=== PATIENT | male | born 1980 | race Caucasian/White ===

== ENCOUNTER 2019-09-08 13:14 | Emergency (ER) | payer OTHER, SELFPAY ==
[2019-09-08 13:36] VITALS: BP 135/80; PULSE 90; RESP 20; TEMP 37.3; O2SAT 96; BMI 28.5
--- NOTE | 2019-09-08 13:42 | HMH.EDUTC ---
[facility] [place] Disposition Clinical Impression: Encounter for laboratory testing for COVID-19 virus, Strep throat Disposition: Home, Self-Care Condition on Discharge: Good Instructions: Strep Throat, DI for Strep Throat, Preventing the Spread of Coronavirus Discharge Instructions Additional Instructions: *If you did not take Penicillin shot or was unable to, start taking antibiotic immediately and make sure that you take it for the FULL length of time although you should start to feel better in 24-48 hours *change toothbrush and toothpaste 24-48 hours after starting to take antibiotics so you do not reinfect yourself Monitor Temp. Tylenol and/or Ibuprofen as needed. ER if fever is no less than 101 despite alternating Tylenol and Ibuprofen * Encourage fluids, water, Gatorade, powerade, pedialyte if /toddler/or child *Cold fluids, popsicles and ice cream may feel good on his throat *Monitor Temp, Over the counter Motrin or Tylenol as directed/as needed Tylenol every 4 hours and Motrin every 6 hours (as long as your family doctor has told you that you can take it) for fever or pain. and straight to ER if unable to lower temp less than 101.0 after medication given *Warm salt water gargles may help to soothe the throat *Throat Lozenges *Warm fluids like tea with honey may help to soothe the throat *Sleep elevated *Humidifier/Vaporizer Follow up IMMEDIATELY for new or worsening symptoms or no Noticeable improvement over the next 48-72 hours. 911 for difficulty breathing or swallowing Go home and self Quarantine until your test results are back and is a negative test *You was given hand out with Quarantine instructions, please follow them closely to help prevent the spread of COVID19 until your test results are back and if they are positive those instructions was included No work or public outings until test is negative'\ Follow up with Family doctor if no improvement or any worsening of symptoms in the next 48-72 hours Call back to the [facility] tomorrow to see if your results are back and if they not back then call back on Return if needed Straight to ER if any life threatening symptoms Prescriptions: Azithromycin [Z-Chris 250mg Tab] 250 mg PO DIRECTED #6 tab Transmission Status: Received by [facility] #[id number] Referrals: Clara Mesa [Primary Care Provider] - As needed Time of Disposition: 14:03 Medical Decision Making - Walter Inquiry Pt receiving controlled substance: No Walter was queried for this patient: No Vital Signs: 09/08/19 13:36 Temperature 99.1 F Temperature Source Oral Pulse Rate [Left Brachial] 90 Respiratory Rate 20 Blood Pressure [Left Arm] 135/80 Blood Pressure Mean [Left Arm] 98 Blood Pressure Source [Left Arm] Automatic Cuff Blood Pressure Position [Left Arm] Sitting 02 Sat by Pulse Oximetry 96 Oxygen Delivery Method Room Air - Lab Data Lab results reviewed: Yes: I reviewed the patient's lab results. Orders (Tests/Meds): ORDERS Category Date Time Status SARS-CoV-2, LORENE Stat Lab 09/08/19 13:49 Ordered [facility] [place] HPI - General Stated complaint: fever Time Seen by Provider: 09/08/19 13:43 Mode of Arrival: Ambulatory Source of Information: Patient Limitations: No Limitations Description of Symptoms (Recalled from Triage Doc. by RN): PATIENT C/O FEVER, EXHAUSTION, MUSCLE FATIGUE, HEADACHE AND NAUSEA SINCE SATURDAY. 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
[2019-09-08 14:27] VITALS: BP 135/80; PULSE 90; RESP 20; TEMP 37.3; O2SAT 96
[2019-09-08 19:18] LABS: UTC Strep Screen (Rapid) Positive (Negative)
[2019-09-10 12:19] LABS: Covid-19 Nasal PCR Sendout Lex NOT DETECTED
== END 2019-09-08 14:33 | disposition home or self-care (01) ==
PROVIDERS: Emergency Provider Nurse Practitioner; PCP Nurse Practitioner Family
DX: J02.0 Streptococcal pharyngitis (principal); Z03.818 Encounter for observation for suspected exposure to other biological agents ruled out
CPT/HCPCS: 87880; 99202; U0004

== ENCOUNTER 2020-01-16 11:51 | Emergency (ER) | payer OTHER, SELFPAY ==
[2020-01-16 12:19] VITALS: BP 137/80; PULSE 68; RESP 18; TEMP 36.8; O2SAT 99; BMI 28.5
--- NOTE | 2020-01-16 12:28 | HMH.EDUTC ---
[facility] [place] Disposition Clinical Impression: Exposure to COVID-19 virus Impacted ear wax Qualifiers: Laterality: left Qualified Code(s): H61.22 - Impacted cerumen, left ear Disposition: Home, Self-Care Condition on Discharge: Good Instructions: DI for Cerumen Impaction, Preventing the Spread of Coronavirus Discharge Instructions Additional Instructions: *Monitor Temp, Over the counter Motrin or Tylenol as directed/as needed Tylenol every 4 hours and Motrin every 6 hours (as long as your family doctor has told you that you can take it) for fever or pain. and straight to ER if unable to lower temp less than 101.0 after medication given *Warm salt water gargles may help to soothe the throat *Throat Lozenges *Warm fluids like tea with honey may help to soothe the throat *Sleep elevated *Humidifier/Vaporizer Follow up IMMEDIATELY for new or worsening symptoms or no Noticeable improvement over the next 48-72 hours. 911 for difficulty breathing or swallowing You was tested for today for COVID19 your test result should be back in the next 24-48 hours, you may call to the [facility] tomorrow to see if your test results are back and the result [phone] You was given a handout with instructions for Self Quarantine and Self isolation for while you wait on test results and what to do if they are positive If you are positive the Health Dept will be contacting you also Referrals: Clara Mesa [Primary Care Provider] - As needed Forms: Work/School Release Time of Disposition: 12:31 Medical Decision Making - Walter Inquiry Pt receiving controlled substance: No Walter was queried for this patient: No Vital Signs: 01/16/20 12:19 Temperature 98.2 F Temperature Source Oral Pulse Rate [Radial] 68 Respiratory Rate 18 Blood Pressure [Right Arm] 137/80 Blood Pressure Mean [Right Arm] 99 Blood Pressure Source [Right Arm] Automatic Cuff Blood Pressure Position [Right Arm] Sitting 02 Sat by Pulse Oximetry 99 Oxygen Delivery Method Room Air Orders (Tests/Meds): ORDERS Category Date Time Status Covid-19 Nasal PCR ([facility]) Routine Lab 01/16/20 11:57 Ordered [facility] [place] HPI - General Stated complaint: covid test Time Seen by Provider: 01/16/20 12:28 Mode of Arrival: Ambulatory Source of Information: Patient Limitations: No Limitations Description of Symptoms (Recalled from Triage Doc. 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 and he works for air handling for hospitals and it is his work policy that if he gets exposed he cannot return to work until he has been tested so he come in to get tested and wants to have his left ear irrigated because he feels like it is stopped up with wax - Related Data Home Medications Medication Instructions Recorded Confirmed Venlafaxine HCl [Effexor 37.5mg 1 tab PO BID 05/06/19 09/08/19 tablet] Previous Rx's Medication Instructions Recorded Azithromycin [Z-Chris 250mg Tab] 250 mg PO DIRECTED #6 tab 09/08/19 Allergies Allergy/AdvReac Type Severity Reaction Status Date / Time cephalexin [From Keflex] Allergy Verified 09/08/19 13:40 Cephalosporins Allergy Verified 09/08/19 13:41 - Worker's Comp Is this a Worker's Comp case?: No [facility] History - Hepatitis A Screen Drug use history?: No High risk sexual behaviors?: No History of sexually transmitted infection?: No Currently employed?: No Childcare worker?: No Do you have indoor plumbing?: Yes Do you have electricity?: Yes Attestation statement:: This patient has been screened for Hepatitis A risk factors. I have reviewed the patient's past medical history: Yes - Social History Alcoho
[2020-01-16 13:12] VITALS: BP 137/80; PULSE 68; RESP 18; TEMP 36.8; O2SAT 99
== END 2020-01-16 13:14 | disposition home or self-care (01) ==
PROVIDERS: Emergency Provider Nurse Practitioner; PCP Nurse Practitioner Family
DX: Z20.828 Contact with and (suspected) exposure to other viral communicable diseases (principal); H61.22 Impacted cerumen, left ear
CPT/HCPCS: 99201; U0003

== ENCOUNTER 2021-05-01 10:11 | Emergency (ER) | payer OTHER, SELFPAY ==
[2021-05-01 10:25] VITALS: BP 114/69; PULSE 68; RESP 17; TEMP 37.1; O2SAT 98; BMI 33.0
--- NOTE | 2021-05-01 10:46 | HMH.EDUTC ---
[facility] [place] Disposition Clinical Impression: Nausea vomiting and diarrhea Disposition: Home, Self-Care Condition on Discharge: Good Instructions: Diarrhea, Nausea and Vomiting-Adult Additional Instructions: Drink extra fluids with and between meals. If you have difficulty drinking, try very small amounts of water or suck on ice chips. ? Avoid fruit juices, as these do not replace minerals and can actually increase diarrhea. ? Children and adults can use sports drinks to replenish electrolytes. Younger children and infants should use products formulated for children, like oral rehydration solutions. ? Eat food in small amounts and let your stomach recover. ? Get lots of rest. You may feel tired or weak. ? No greasy or fried foods for the next 24-48 hours BRAT diet Bananas Rice Apples and [place] ? Make sure to drink plenty of liquids ? Return if needed ? Straight to ER if any life threatening symptoms ? Zofran as prescribed ? You was given an outpatient order for diarrhea panel, please collect specimen and bring back to outpatient lab then call back to the [facility] or follow up with family doctor for results ? Follow up with family doctor in the next 48-72 hours if no improvement or any worsening of symptoms Prescriptions: Ondansetron [Zofran 4mg ODT] 4 mg PO TIDP PRN #10 tab PRN Reason: Nausea Transmission Status: Received by [facility] #[id number] Referrals: Clara Mesa [Primary Care Provider] - As needed Forms: Work/School Release Time of Disposition: 11:16 Medical Decision Making - Walter Inquiry Pt receiving controlled substance: No Walter was queried for this patient: No Vital Signs: 05/01/21 10:25 05/01/21 11:40 Temperature 98.7 F 98.7 F Temperature Source Oral Oral Pulse Rate 68 Pulse Rate [Right Radial] 68 Respiratory Rate 17 17 Blood Pressure 114/69 Blood Pressure [Right Arm] 114/69 Blood Pressure Mean [Right Arm] 84 Blood Pressure Source Automatic Cuff Blood Pressure Source [Right Arm] Automatic Cuff Blood Pressure Position Sitting Blood Pressure Position [Right Arm] Sitting 02 Sat by Pulse Oximetry 98 Oxygen Delivery Method Room Air Room Air - Lab Data Lab Results 05/01/21 11:40: Stl Aeromonas (PCR) Not detected, Stl C. cayetanensis PCR Not detected, Stool Rotavirus (PCR) Detected A, Stl Adenov F 40/41 PCR Not detected, Stool Astrovirus (PCR) Not detected, Stool Campylobacter PCR Not detected, Stl C.difficile Tox PCR Not detected, Stool Cryptosporidium PCR Not detected, Stl E.coli Shiga Tox PCR Not detected, Stool E coli O157 PCR Not detected, Stl Enterotoxigenic E PCR Not detected, Stool EPEC (PCR) Not detected, Stool EAEC (PCR) Not detected, Stl E. histolytica PCR Not detected, Stool Giardia Lamblia PCR Not detected, Stool Salmonella PCR Not detected, Stool Sapovirus (PCR) Not detected, Stl P. shigelloides PCR Not detected, Stl Shigella/EIEC PCR Not detected, St Y.enterocolitica PCR Not detected, Stool Vibrio (PCR) Not detected, Stl Vibrio cholerae PCR Not detected, Stl Norovirus GI/GII PCR Not detected Orders (Tests/Meds): ED MEDICATIONS Discontinued Medications Generic Name Dose Route Start Last Admin Trade Name Freq PRN Reason Stop Dose Admin Ondansetron HCl 4 mg 05/01/21 10:53 05/01/21 10:54 Ondansetron 4mg Odt SL 05/01/21 10:54 4 mg ONCE ONE Administration Medical Decision Narrative: Patient states that he has taken zofran in the past without complications or reactions Patient no vomiting after medication patient was given jeny mist and will monitor to see if he can keep it down [facility] [place] HPI - General Stated complaint: vomiting, diarrhea Time Seen by Provider: 05/01/21 10:46 Mode of Arrival: Ambulatory Source of Information: Patient Limitations: No Limitations Description of Symptoms (Recalled from Triage Doc. by RN): Pt stated that he has vomiting, diarrhea, and nausea since saturday morning. HEENT Symptoms (Recalled from RN notes): No Resp Symptoms (R
[2021-05-01 11:40] VITALS: BP 114/69; PULSE 68; RESP 17; TEMP 37.1; O2SAT 98
[2021-05-01 11:59] LABS: Adenovirus F 40/41, stool Not Detected (NotDetected); Astrovirus Not Detected (NotDetected); Campylobacter Not Detected (NotDetected); Clostridium Difficile A/B, PCR Not Detected (NotDetected); Cryptosporidium Not Detected (NotDetected); Cyclospora Cayetanesis Not Detected (NotDetected); Entamoeba histolytica Not Detected (NotDetected); Enteroaggregative E coli Not Detected (NotDetected); Enteropathogenic E coli Not Detected (NotDetected); Enterotoxigenic E coli Not Detected (NotDetected); Giardia lamblia Not Detected (NotDetected); Norovirus Not Detected (NotDetected); Plesimonas Shigalloides, PCR Not Detected (NotDetected); Salmonella, PCR Not Detected (NotDetected); Sapovirus Not Detected (NotDetected); Shiga-like toxin E coli Not Detected (NotDetected); Shigella Enterovasive E coli Not Detected (NotDetected); Vibrio Cholerae Not Detected (NotDetected); Vibrio, PCR Not Detected (NotDetected); Yersinia Entercolitica, PCR Not Detected (NotDetected)
[2021-05-01 14:31] LABS: Rotavirus A Detected (NotDetected)
== END 2021-05-01 11:40 | disposition home or self-care (01) ==
PROVIDERS: Emergency Provider Nurse Practitioner; PCP Nurse Practitioner Family
DX: B97.89 Other viral agents as the cause of diseases classified elsewhere (principal); R11.2 Nausea with vomiting, unspecified; R19.7 Diarrhea, unspecified
CPT/HCPCS: 87507; 99212; G0463

== ENCOUNTER 2021-05-28 10:37 | Observation (INO) | payer OTHER, SELFPAY ==
[2021-05-28 10:38] VITALS: BP 131/73; PULSE 80; RESP 15; TEMP 36.8; O2SAT 100; BMI 29.8
--- NOTE | 2021-05-28 11:04 | CT_ITS ---
PROCEDURE INFORMATION: Exam: CT Head Without Contrast Exam date and time: 05/28/2021 12:02 PM Age: 40 years old Clinical indication: Pain; Headache; Migraine; Aura effect not specified; Does not respond to medication; With migrainosus (>72 hrs & severe); Additional info: Migraine x 1.5 months TECHNIQUE: Imaging protocol: Computed tomography of the head without contrast. Radiation optimization: All CT scans at this facility use at least one of these dose optimization techniques: automated exposure control; mA and/or kV adjustment per patient size (includes targeted exams where dose is matched to clinical indication); or iterative reconstruction. COMPARISON: No relevant prior studies available. FINDINGS: Brain: Poorly defined region of diminished density superimposed upon the lavonne. The findings may be artifactual however a region of chronic ischemic change could not be excluded. Cerebral ventricles: No ventriculomegaly. Paranasal sinuses: Minimal left maxillary sinus inflammatory changes. Mastoid air cells: Visualized mastoid air cells are well aerated. Bones/joints: Unremarkable. No acute fracture. Soft tissues: Unremarkable. IMPRESSION: 1. Poorly defined region of diminished density superimposed upon the lavonne. The findings may be artifactual however a region of chronic ischemic change could not be excluded. 2. Recommend follow-up with magnetic resonance imaging of the brain.
--- NOTE | 2021-05-28 11:16 | HMH.EDGENADL ---
ED Disposition Clinical Impression: Macrocytic anemia, Weight loss, Vertigo Intractable headache Qualifiers: Headache type: unspecified Headache chronicity pattern: chronic headache Qualified Code(s): R51.9 - Headache, unspecified Vomiting Qualifiers: Vomiting type: unspecified Nausea presence: with nausea Qualified Code(s): R11.2 - Nausea with vomiting, unspecified Disposition: Home, Self-Care Condition on Discharge: Fair Referrals: Clara Mesa [Primary Care Provider] - - Critical Care Critical Care Time: No Attestation: On 05/28/21, the high probability of a clinically significant, sudden or life threatening deterioration of the following system(s) required my full and direct attention, intervention and personal management. The time I documented below is in addition to time spent performing reported procedures but includes the following listed in this critical care notation. Medical Decision Making - Walter Inquiry Pt receiving controlled substance: Yes Walter was queried for this patient: Yes Risks and benefits of using a controlled substance: were not discussed with pt by me Vital Signs: 05/28/21 10:38 Temperature 98.3 F Temperature Source Oral Pulse Rate [Right Radial] 80 Respiratory Rate 15 Blood Pressure [Right Arm] 131/73 Blood Pressure Mean [Right Arm] 92 Blood Pressure Source [Right Arm] Automatic Cuff Blood Pressure Position [Right Arm] Sitting 02 Sat by Pulse Oximetry 100 Oxygen Delivery Method Room Air - Lab Data Lab Results 05/28/21 10:56: WBC 3.4 L, RBC 1.73 L*, Hgb 7.2 L, Hct 20.1 L*, MCV 115.9 H, MCH 41.3 H*, MCHC 35.6 H, RDW 22.0 H, Plt Count 191, MPV 8.3, Neut % (Auto) 53.7, Lymph % (Auto) 38.8, Brooke % (Auto) 3.5, Eos % (Auto) 2.8, Baso % (Auto) 1.2, Neut # (Auto) 1.8, Lymph # (Auto) 1.3, Brooke # (Auto) 0.1, Eos # (Auto) 0.1, Baso # (Auto) 0.0 05/28/21 10:56: Sodium 138, Potassium 4.4, Chloride 105, Carbon Dioxide 27, Anion Gap 10.4, BUN 16, Creatinine 0.90, Estimated Creat Clear 151, Estimated GFR 93, Est GFR ( Amer) 112, Glucose 109 H, Calcium 8.8, Total Bilirubin 1.7 H, AST 88 H, ALT 60, Alkaline Phosphatase 71, Total Protein 7.4, Albumin 4.5, Globulin 2.9, Albumin/Globulin Ratio 1.6 05/28/21 10:56: ESR > 140 H 05/28/21 10:56: C-Reactive Protein 7.7 H, Procalcitonin 0.248 05/28/21 10:56: Iron 281 H, TIBC 295, Iron Saturation 95.53835 H, Ferritin 233 Result diagrams: 05/28/21 10:56 05/28/21 10:56 Orders (Tests/Meds): ED MEDICATIONS Generic Name Dose Route Start Last Admin Trade Name Freq PRN Reason Stop Dose Admin Sodium Chloride 10 ml 05/28/21 11:04 Sodium Chloride 0.9% 10ml Flush Syringe IV 06/27/21 11:03 NEEDED PRN Maintain IV Site Discontinued Medications Generic Name Dose Route Start Last Admin Trade Name Freq PRN Reason Stop Dose Admin Butorphanol Tartrate 1 mg 05/28/21 11:25 05/28/21 11:49 Butorphanol Tartrate 1 Mg/Ml Vial IV 05/28/21 11:26 1 mg ONCE ONE Administration Sodium Chloride 1,000 mls @ 999 mls/hr 05/28/21 11:04 05/28/21 11:11 Sod Chlor 0.9% 1000ml Bag IV 05/28/21 12:04 999 mls/hr .Q1H1M ONE Administration Ondansetron HCl 4 mg 05/28/21 11:04 05/28/21 11:11 Ondansetron 4mg/2ml Vial IV 05/28/21 11:05 4 mg ONCE ONE Administration Ondansetron HCl 4 mg 05/28/21 13:09 05/28/21 13:15 Ondansetron 4mg/2ml Vial IV 05/28/21 13:10 4 mg ONCE ONE Administration Prochlorperazine Edisylate 5 mg 05/28/21 11:25 05/28/21 11:49 Prochlorperazine 10mg/2ml Vial IV 05/28/21 11:26 5 mg ONCE ONE Administration Ubrogepant 100 mg 05/28/21 13:40 Ubrogepant 50mg Tablet PO 05/28/21 13:41 ONCE ONE ORDERS Category Date Time Status Folate Stat Lab 05/28/21 10:56 Received Rapid PCR Covid and Flu A/B Stat Lab 05/28/21 12:48 Ordered Thyroid Panel Stat Lab 05/28/21 10:56 Received Vitamin B12 Stat Lab 05/28/21 10:56 Received - CT Data CT Scan: Head Time Received: 1
[2021-05-28 12:33] LABS: Basophils % 1.2 % (0.1-2.0); Eosinophils # 0.1 K/mm3 (0.0-0.4); Eosinophils % 2.8 % (0.1-12.0); Hemoglobin 7.2 g/dL (14.1-18.0); Lymphocytes # 1.3 K/mm3 (0.7-4.5); Lymphocytes % 38.8 % (10-50); Mean Corpuscular HGB Conc 35.6 g/dL (31.8-35.4); Mean Corpuscular Volume 115.9 fl (80-94); Mean Platelet Volume 8.3 fl (7.4-10.4); Monocytes # 0.1 K/mm3 (0.1-1.0); Monocytes % 3.5 % (1.7-9.3); Neutrophils # 1.8 K/mm3 (1.8-7.8); Neutrophils % 53.7 % (37.0-80.0); Platelet Count 191 K/mm3 (142-424); Red Blood Count 1.73 M/mm3 (4.60-6.20); White Blood Count 3.4 K/mm3 (4.8-10.8)
[2021-05-28 12:38] LABS: Mean Corpuscular Hemoglobin 41.3 pg (27.0-31.2)
[2021-05-28 12:40] LABS: Alanine Aminotransferase 60 U/L (12-78); Albumin Level 4.5 g/dl (3.5-5.0); Albumin/Globulin Ratio 1.6 (1.1-1.8); Alkaline Phosphatase 71 U/L (38-126); Anion Gap 10.4 mEq/L (5-15); Aspartate Amino Transferase 88 U/L (17-59); Bilirubin,Total 1.7 mg/dl (0.2-1.3); Blood Urea Nitrogen 16 mg/dl (9-20); Calcium 8.8 mg/dl (8.4-10.2); Carbon Dioxide 27 mmol/L (22.0-30.0); Chloride 105 mmol/L (98-107); Creatinine Clearance Estimated 151 mL/min (50-200); Estimated Glomerular Filt Rate 93 ml/min (>60); GFR (African American) 112 ML/MIN (>60); Globulin 2.9 g/dL (1.3-3.2); Glucose 109 mg/dl (74-100); Hematocrit 20.1 % (42.0-52.0); Potassium 4.4 mmoL/L (3.5-5.1); Sodium 138 mmol/L (136-145); Total Protein,Serum 7.4 g/dl (6.3-8.2)
--- NOTE | 2021-05-28 12:40 | PC.NURSE ---
LAB CALLED WITH CRITICAL HCT 20.1
--- NOTE | 2021-05-28 12:56 | PC.NURSE ---
obtained vitals, pt was sitting upright in chair
[2021-05-28 13:01] LABS: Iron 281 ug/dL (49-181)
[2021-05-28 13:11] LABS: Total Iron Binding Capacity 295 ug/dL (261-462)
--- NOTE | 2021-05-28 13:16 | PC.NURSE ---
Paged Dr Reilly
[2021-05-28 13:23] LABS: C-Reactive Protein 7.7 mg/L (0-4)
--- NOTE | 2021-05-28 13:28 | PC.NURSE ---
Dr Reilly called back [phone]
[2021-05-28 13:33] LABS: Erythrocyte Sedimentation Rate > 140 mm/hr (0-15)
[2021-05-28 13:36] LABS: Procalcitonin 0.248 ng/mL (0.0-2.0)
--- NOTE | 2021-05-28 13:37 | PC.NURSE ---
MD went to talk to Pt about admitting
[2021-05-28 13:39] LABS: Ferritin 233 ng/ml (17.9-464)
--- NOTE | 2021-05-28 13:42 | PC.NURSE ---
HOUSE CALLED FOR BED
--- NOTE | 2021-05-28 13:49 | PC.NURSE ---
[facility] CALLED ABOUT DOSE OF UBRELVY SHE ADVISED THEY WILL GIVE THAT DOSE UPON ADMISSION,MEDS ARE UP THERE
--- NOTE | 2021-05-28 13:50 | PC.NURSE ---
patrice called back to let know about med in pharm
[2021-05-28 14:05] LABS: Coronavirus 19, PCR Not Detected (NotDetected); Influenza A, PCR Not Detected (NotDetected); Influenza B, PCR Not Detected (NotDetected)
--- NOTE | 2021-05-28 14:05 | HMH.PHAINT ---
Addendum entered and electronically signed by Olvin Qiu PharmD 05/28/21 14:34: CALLED ER TO VERIFY EFFEXOR DOSE Original Note: MEDICATION RECONCILIATION COMPLETED ON PATIENT USING EXTERNAL FILL HISTORY FROM PHARMACY AND LIST FROM [facility] VISIT LAST MONTH. -CAMACHO QIU PHARMD
[2021-05-28 14:06] LABS: T4 (Thyroxine) 7.6 ug/dl (5.53-11.0); Triiodothryronine (T3) Uptake 26 % (23.5-40.5)
[2021-05-28 14:20] LABS: Thyroid Stimulating Hormone 9.63 uIU/mL (0.465-4.68)
--- NOTE | 2021-05-28 14:31 | HMH.PHAVTE ---
[facility] Pharmacy VTE Monitoring - Patient Demographics Admission date: 05/28/21 Report Date: 05/28/21 Time: 14:31 Allergies/Adverse Reactions: Patient Allergies cephalexin [From Keflex] Allergy (Verified 05/01/21 10:30) Cephalosporins Allergy (Verified 05/01/21 10:30) Height: 1.83 m Weight: 99.79 kg Patient Problems: Current Active Problems Macrocytic anemia (Acute) Intractable headache (Acute) Vomiting (Acute) Weight loss (Acute) Vertigo (Acute) - VTE Risk Labs: VTE Related Lab Results Hgb 7.2 g/dL (14.1-18.0) L 05/28/21 10:56 Hct 20.1 % (42.0-52.0) L* 05/28/21 10:56 Plt Count 191 K/mm3 (142-424) 05/28/21 10:56 BUN 16 mg/dl (9-20) 05/28/21 10:56 Creatinine 0.90 mg/dl (0.66-1.25) 05/28/21 10:56 Estimated Creat Clear 151 mL/min (50-200) 05/28/21 10:56 - Prophylaxis VTE Prophylaxis Ordered?: Yes Types of VTE Prophylaxis: TEDS Knee High Location of Applied Device: Bilateral Lower Extremeties
[2021-05-28 14:40] VITALS: BP 137/74; PULSE 96; RESP 18; TEMP 36.9; O2SAT 100; BMI 31.5
[2021-05-28 14:41] VITALS: BP 127/76; PULSE 85; RESP 16; TEMP 36.8; O2SAT 100
[2021-05-28 14:49] LABS: Vitamin B12 < 159 pg/mL (239-931)
--- NOTE | 2021-05-28 15:59 | PC.NURSE ---
Courtesy round done Ice water given
[2021-05-28 20:00] VITALS: BP 116/48; PULSE 88; RESP 16; TEMP 37.2; O2SAT 98
[2021-05-28 20:24] LABS: Uric Acid 6.3 mg/dl (3.5-8.5)
--- NOTE | 2021-05-28 20:28 | HMH.HP ---
*Admission Date: 05/28/21 *Chief complaint: headache, nausea, vomiting *History of present illness: 40-year-old male with fairly benign past medical history. Presented to the ER because of worsening headache, vomiting, weakness. On presentation he states that he has had a headache that has been chronic and intractable along with vomiting for the past 1-1/2 months. He has seen his primary care doctor twice over this. Was noted to have lost over 30 pounds in this timeframe. His headache is diffuse but intense midline top of his head. Occasional vertigo type symptoms. Denies any fever but does complain of some occasional chills at night (without sweating). Denies numbness or weakness, photosensitivity. Vomiting happening at least once a day. Difficult time keeping food down. Increased stool output with more frequent looser stools but no blanca diarrhea. Denies any easy bruising but does complain of some bleeding gums when he brushes his teeth. Is more fatigued with exertion. States he normally takes the stairs but can barely go up 2 or 3 stairs without having to stop to catch his breath. This is progressed over the past month or more. On initial work-up in the ER, head imaging was performed along with routine labs. Labs significant for marked macrocytic anemia with an MCV of 115 and hemoglobin of 7.2. Remainder of labs relatively unremarkable with normal electrolytes and kidney function. CT of head with vague finding of possible chronic ischemia around the lavonne versus motion artifact. Given inability to tolerate oral intake, extensive weight loss, marked anemia, patient admitted to medicine for further management. Evaluated after arriving to the floor. Patient is hemodynamically stable. Has family at bedside. They give an extensive history of his symptoms as above. Also mentioned that he has family members with Westwood's and celiac disease. Multiple family members with solid tumor cancers. Patient had recent sinus balloon plasty in February for chronic sinusitis, had good benefit. He is feeling better after treatment of his headache and nausea in the ER with Stadol, Compazine, Ubrelvy. Ate his entire clear liquid diet dinner. Denies any nausea or headache at this time. [facility] History I have reviewed the patient's past medical history: Yes Medical History: Reports:: Migraine Denies:: Diabetes Mellitus Type 1, Diabetes Mellitus Type 2 *Have you ever received a pneumonia vaccine?: No *Have you received a flu vaccine this season?: Yes Other Medical History: Reports: Anemia, Arthritis - *Social History Last grade of school completed: Advanced degree Smoking Status: Never smoker Alcohol Intake: never *Occupational Status:: employed *Travel in the last 8 weeks: None Family Hx:: Cancer, Coronary Artery Disease, Diabetes, Heart Attack, Hyperlipidemia, Hypertension, Stroke Review of Systems - Review of Systems Review of systems:: pertinent systems reviewed and negative unless documented below (14 point review of systems performed, pertinent positives and negatives as per HPI) - *Neurologic Reports headache(s), Reports dizziness, Denies loss of vision, Denies numbness, Denies weakness Meds Home Medications Medication Instructions Recorded Confirmed Type Ondansetron [Zofran 4mg ODT] 4 mg PO TIDP PRN #10 tab 05/01/21 05/28/21 Rx Meclizine HCl [Meclizine 25mg Tab] 25 mg PO TIDP PRN 05/28/21 05/28/21 History Promethazine HCl [Phenergan 25mg 25 mg PO Q6HP PRN 05/28/21 05/28/21 History tab] Topiramate 25 - 50 mg PO HS 05/28/21 05/28/21 History Venlafaxine HCl 75 mg PO BID 05/28/21 05/28/21 History Allergies Allergy/AdvReac Type Severity Reaction Status Date / Time cephalexin [From Keflex] Allergy Verified 05/01/21 10:30 Cephalosporins Allergy Verified 05/01/21 10:30 Exam Vital signs and Labs for Last 24 Hours: Temp Pulse Resp BP Pulse Ox 98.3 F 85 16 127/76 100 05/28/21 14:41 05/28/21 14:
[2021-05-28 20:52] LABS: Lactate Dehydrogenase 2558 U/L (313-618)
[2021-05-29] VITALS (17 sets, daily range): BP systolic 102–138; BP diastolic 41–84; PULSE 73–89; RESP 13–18; TEMP 36.5–37.2; O2SAT 95–100; BMI 31.1; BMI 31.0
--- NOTE | 2021-05-29 05:27 | PC.NURSE ---
pt has rested well throughout shift, pt denies pain or discomfort, states i feel better than I have in a month , no nausea or vomiting throughout night,iv patent and fluids continue to infuse, pt is npo for ultrasound today, vss no distress noted
[2021-05-29 06:44] LABS: Basophils % 0.4 % (0.1-2.0); Eosinophils # 0.1 K/mm3 (0.0-0.4); Eosinophils % 2.3 % (0.1-12.0); Lymphocytes # 1.7 K/mm3 (0.7-4.5); Lymphocytes % 41.3 % (10-50); Mean Corpuscular HGB Conc 36.6 g/dL (31.8-35.4); Mean Corpuscular Volume 114.5 fl (80-94); Mean Platelet Volume 8.7 fl (7.4-10.4); Monocytes # 0.1 K/mm3 (0.1-1.0); Monocytes % 2.8 % (1.7-9.3); Neutrophils # 2.2 K/mm3 (1.8-7.8); Platelet Count 134 K/mm3 (142-424); Red Blood Count 1.49 M/mm3 (4.60-6.20); Red Cell Distribution Width 22.1 % (11.5-17.5); White Blood Count 4.1 K/mm3 (4.8-10.8)
--- NOTE | 2021-05-29 07:00 | US_ITS ---
FINAL REPORT CLINICAL HISTORY: vomiting, elev liver enzymes FINDINGS: Sonographic images of the right upper quadrant were obtained. The pancreas is partially obscured. There is fatty infiltration of the liver. The gallbladder appears normal without evidence of gallstones.There is no evidence of biliary ductal dilatation.The common duct measures 3 mm. Limited images of the right kidney are unremarkable. IMPRESSION: Fatty liver. Reviewed, Interpreted and Dictated by Phillip Brito III, MD Transcribed by Corinna Braxton Authenticated by Phillip Brito III, MD on 05/29/2021 09:09:15 AM [facility]
[2021-05-29 07:01] LABS: Alanine Aminotransferase 53 U/L (12-78); Albumin Level 3.9 g/dl (3.5-5.0); Albumin/Globulin Ratio 1.6 (1.1-1.8); Alkaline Phosphatase 53 U/L (38-126); Anion Gap 9.6 mEq/L (5-15); Aspartate Amino Transferase 88 U/L (17-59); Blood Urea Nitrogen 13 mg/dl (9-20); Calcium 8.2 mg/dl (8.4-10.2); Carbon Dioxide 26 mmol/L (22.0-30.0); Chloride 108 mmol/L (98-107); Creatinine Clearance Estimated 175 mL/min (50-200); Estimated Glomerular Filt Rate 106 ml/min (>60); GFR (African American) 128 ML/MIN (>60); Globulin 2.4 g/dL (1.3-3.2); Glucose 95 mg/dl (74-100); Magnesium 2.1 mg/dl (1.6-2.3); Potassium 4.6 mmoL/L (3.5-5.1); Sodium 139 mmol/L (136-145); Total Protein,Serum 6.3 g/dl (6.3-8.2)
[2021-05-29 07:02] LABS: Mean Corpuscular Hemoglobin 41.9 pg (27.0-31.2)
[2021-05-29 07:04] LABS: Hemoglobin 6.2 g/dL (14.1-18.0)
--- NOTE | 2021-05-29 08:12 | MR_ITS ---
FINAL REPORT CLINICAL HISTORY: HEADACHE [id number], CT ABNORMALITY. COMPARISON: CT dated May 28, 2021 FINDINGS: Multiplanar MR imaging of the brain was performed without contrast. There is no evidence of intracranial hemorrhage or mass. The ventricular size is normal. There is no evidence of shift of the midline structures. No abnormal extra-axial fluid collection is identified. The posterior fossa and brainstem have an unremarkable appearance. There is no focal abnormality seen in the lavonne. No area of abnormal restricted diffusion is identified. Normal major vessel vascular flow voids are seen. There is mild mucosal thickening in the sinuses. IMPRESSION: Unremarkable brain with no acute intracranial abnormality. No focal abnormality seen in the lavonne. Mild mucosal thickening the sinuses. Reviewed, Interpreted and Dictated by Phillip Brito III, MD Transcribed by Angelika Carney Authenticated by Phillip Brito III, MD on 05/29/2021 11:17:00 AM [facility]
--- NOTE | 2021-05-29 09:03 | HMH.ACPN2 ---
Internal Medicine - PN: Subj *Date: 05/29/21 *Time: 09:03 Interval history: Patient's headache is a little better today. He feels somewhat better, remains fatigued. Exam Vital signs and Labs for Last 24 Hours: Temp Pulse Resp BP Pulse Ox 98.4 F 84 15 102/41 L 98 05/29/21 05:26 05/29/21 05:26 05/29/21 05:26 05/29/21 05:26 05/29/21 05:26 Laboratory Results - last 24 hr 05/28/21 10:56: WBC 3.4 L, RBC 1.73 L*, Hgb 7.2 L, Hct 20.1 L*, MCV 115.9 H, MCH 41.3 H*, MCHC 35.6 H, RDW 22.0 H, Plt Count 191, MPV 8.3, Neut % (Auto) 53.7, Lymph % (Auto) 38.8, Garrard % (Auto) 3.5, Eos % (Auto) 2.8, Baso % (Auto) 1.2, Neut # (Auto) 1.8, Lymph # (Auto) 1.3, Garrard # (Auto) 0.1, Eos # (Auto) 0.1, Baso # (Auto) 0.0 05/28/21 10:56: Sodium 138, Potassium 4.4, Chloride 105, Carbon Dioxide 27, Anion Gap 10.4, BUN 16, Creatinine 0.90, Estimated Creat Clear 151, Estimated GFR 93, Est GFR ( Amer) 112, Glucose 109 H, Calcium 8.8, Total Bilirubin 1.7 H, AST 88 H, ALT 60, Alkaline Phosphatase 71, Total Protein 7.4, Albumin 4.5, Globulin 2.9, Albumin/Globulin Ratio 1.6 05/28/21 10:56: ESR > 140 H 05/28/21 10:56: C-Reactive Protein 7.7 H, Procalcitonin 0.248 05/28/21 10:56: Vitamin B12 < 159 L, Folate 13.30 05/28/21 10:56: Iron 281 H, TIBC 295, Iron Saturation 95.53736 H, Ferritin 233 05/28/21 10:56: TSH 9.63 H, Free T4 Index 2.0 L, Thyroxine (T4) 7.6, T3 Uptake 22 10:56: Uric Acid 6.3, Lactate Dehydrogenase 2558 H 05/28/21 10:56: Blood Type Confirm A Positive 05/28/21 13:56: SARS-CoV-2 (PCR) Not detected, Influenza A Untype (PCR) Not detected, Influenza Type B (PCR) Not detected 05/28/21 21:00: Blood Type A Positive, Antibody Screen Negative, Crossmatch (AHG) See Detail 05/29/21 06:25: WBC 4.1 L, RBC 1.49 L*, Hgb 6.2 L*, Hct 17.0 L*, MCV 114.5 H, MCH 41.9 H*, MCHC 36.6 H, RDW 22.1 H, Plt Count 134 L D, MPV 8.7, Neut % (Auto) 53.0, Lymph % (Auto) 41.3, Garrard % (Auto) 2.8, Eos % (Auto) 2.3, Baso % (Auto) 0.4, Neut # (Auto) 2.2, Lymph # (Auto) 1.7, Garrard # (Auto) 0.1, Eos # (Auto) 0.1, Baso # (Auto) 0.0 05/29/21 06:25: Sodium 139, Potassium 4.6, Chloride 108 H, Carbon Dioxide 26, Anion Gap 9.6, BUN 13, Creatinine 0.80, Estimated Creat Clear 175, Estimated GFR 106, Est GFR ( Amer) 128, Glucose 95, Calcium 8.2 L, Phosphorus 4.0, Magnesium 2.1, Total Bilirubin 2.0 H, AST 88 H, ALT 53, Alkaline Phosphatase 53, Total Protein 6.3, Albumin 3.9 D, Globulin 2.4, Albumin/Globulin Ratio 1.6 I & O for Last 24 hours: Intake & Output 05/26/21 05/27/21 05/28/21 05/29/21 11:59 11:59 11:59 11:59 Intake Total 240 / 240 Balance 240 / 240 Weight 220 lb 229 lb 9.6 oz Narrative: Overall patient looks pale but is alert, pleasant. Healthy-appearing. Lungs clear, heart rate regular. No rash. No unusual stigmata of pigmentation. Cranial nerves intact. Soft and nontender. Assessment and Plan (1) Intractable headache Status: Acute Qualifiers: Headache type: unspecified Headache chronicity pattern: chronic headache Qualified Code(s): R51.9 - Headache, unspecified; G89.29 - Other chronic pain Category: Medical Code(s): R51.9 - Headache, unspecified (2) Macrocytic anemia Status: Acute Category: Medical Code(s): D53.9 - Nutritional anemia, unspecified (3) Class 1 obesity Status: Chronic Category: Medical Code(s): E66.9 - Obesity, unspecified (4) Vomiting Status: Acute Qualifiers: Vomiting type: unspecified Nausea presence: with nausea Qualified Code(s): R11.2 - Nausea with vomiting, unspecified Category: Medical Code(s): R11.10 - Vomiting, unspecified (5) Weight loss Status: Acute Category: Medical Code(s): R63.4 - Abnormal weight loss - Assessment and plan all Dx Assessment and Plan for all problems:: B12 deficiency of uncertain etiology-possible pernicious anemia versus other endocrinology abnormalities. Transfusion today given hemoglobin below 7. Check MRI given CT sc
--- NOTE | 2021-05-29 15:41 | PC.NURSE ---
vitals in TAR entered at 1536 are vitals from 1420 that were entered and saved before changing the time in the TAR
--- NOTE | 2021-05-29 18:58 | PC.NURSE ---
Per Dr. Fox, once hemoglobin is obtained to let him know if its above 7. If above 7 will discharge with follow up for Dr. Reilly on saturday. appt will still have to be made
[2021-05-29 20:05] LABS: Hematocrit 22.9 % (42.0-52.0)
[2021-05-29 20:40] LABS: Occult Blood,Stool Negative (Negative)
--- NOTE | 2021-05-29 20:53 | HMH.DCSUM ---
General - General Admission date:: 05/28/21 Discharge date: 05/29/21 HPI HPI: 40-year-old male with fairly benign past medical history. Presented to the ER because of worsening headache, vomiting, weakness. On presentation he states that he has had a headache that has been chronic and intractable along with vomiting for the past 1-1/2 months. He has seen his primary care doctor twice over this. Was noted to have lost over 30 pounds in this timeframe. His headache is diffuse but intense midline top of his head. Occasional vertigo type symptoms. Denies any fever but does complain of some occasional chills at night (without sweating). Denies numbness or weakness, photosensitivity. Vomiting happening at least once a day. Difficult time keeping food down. Increased stool output with more frequent looser stools but no blanca diarrhea. Denies any easy bruising but does complain of some bleeding gums when he brushes his teeth. Is more fatigued with exertion. States he normally takes the stairs but can barely go up 2 or 3 stairs without having to stop to catch his breath. This is progressed over the past month or more. On initial work-up in the ER, head imaging was performed along with routine labs. Labs significant for marked macrocytic anemia with an MCV of 115 and hemoglobin of 7.2. Remainder of labs relatively unremarkable with normal electrolytes and kidney function. CT of head with vague finding of possible chronic ischemia around the lavonne versus motion artifact. Given inability to tolerate oral intake, extensive weight loss, marked anemia, patient admitted to medicine for further management. Evaluated after arriving to the floor. Patient is hemodynamically stable. Has family at bedside. They give an extensive history of his symptoms as above. Also mentioned that he has family members with Yuma's and celiac disease. Multiple family members with solid tumor cancers. Patient had recent sinus balloon plasty in February for chronic sinusitis, had good benefit. He is feeling better after treatment of his headache and nausea in the ER with Stadol, Compazine, Ubrelvy. Ate his entire clear liquid diet dinner. Denies any nausea or headache at this time. Hospital Course Hospital Course: Patient was admitted to hospital as noted in HPI. CT scan of head was negative the ER and MRI was repeated today because of his ongoing headaches and this was also changes or cause of headache. B12 levels were found to be low and patient was found to be mildly low thyroid. He was given IV fluids which caused his hemoglobin to drop below 7 he was transfused with 1 unit of packed cells today which bumped up his hemoglobin to 8 and resolved a lot of his fatigue symptoms. His constellation of symptoms are certainly concerning for several diseases but currently pernicious anemia seems to be our working diagnosis. We have sent off test for multiple conditions including intrinsic factor antibody levels which will be back over the next weeks. Patient is feeling better and is safe to be discharged home to follow as an outpatient. I have told him that I will get him B12 supplementation injections and thyroid supplementation sent to his pharmacy tomorrow office hours, he lives very close to the hospital and is comfortable going home as reliable transportation to get back if he needs to. We will see him in our offices this coming Saturday to go over lab results and see how he is feeling. Objective Vital signs: Temp Pulse Resp BP Pulse Ox 97.7 F 73 14 125/71 100 05/29/21 16:20 05/29/21 16:20 05/29/21 16:20 05/29/21 16:20 05/29/21 16:20 no acute distress - *Routine HEENT Exam Head: Present: normocephalic Eye: Present: EOMI, PERRL ENT: Present: mucous membranes moist - *Routine Neck Exam Present: supple - *Routine Respiratory Exam Present: CTA bilaterally - *Routine Cardiovascular Exam Present: RRR - *Routine Abdomi
--- NOTE | 2021-05-29 22:19 | PC.NURSE ---
2215 iv d/c'd to left antecubital, catheter intact, pt tolerated well, dressing and coban applied, discharge instructions reviewed with return verbal understanding, prescriptions given and instructed on, pt left via wheelchair to private care in satisfactory condition with personal belongings accompanied by srna and family.
[2021-05-30 05:14] LABS: Homocyst(e)ine 94.9 umol/L (0.0-14.5)
[2021-05-30 05:14] LABS: Haptoglobin <10 mg/dL (23-355)
--- NOTE | 2021-05-30 12:48 | CARE MANAGER ---
Addendum entered by Claire Gil RN 06/01/21 12:39: Patient states he is feeling so much better. He has follow up appointment tomorrow. He is taking the thyroid medication and the B12 as well. He denies any questions or concerns. ZAHIDA Christina Addendum entered by Claire Gil RN 05/31/21 13:00: Attempted to contact patient related to hospital discharge follow up and VM was full. ZAHIDA Christina Original Note: Attempted to contact patient related to hospital discharge follow up. Left VM message. ZAHIDA Christina
[2021-05-30 14:13] LABS: Deamidated Gliadin Abs, IgA 7 units (0-19); Deamidated Gliadin Abs, IgG 2 units (0-19); Tissue Transglutaminase IgA Ab <2 U/mL (0-3); Tissue Transglutaminase IgG Ab <2 U/mL (0-5)
[2021-05-30 20:00] LABS: Peripheral Smear Review Scanned Result
[2021-05-31 17:10] LABS: Intrinsic Factor Abs, Serum 52.9 AU/mL (0.0-1.1)
[2021-06-02 12:12] LABS: Methylmalonic Acid 3281 nmol/L (0-378)
== END 2021-05-29 22:12 | disposition home or self-care (01) ==
LOC: ER 13:41 → 2ND 05-29 00:56
PROVIDERS: Admitting Provider Internal Medicine Adolescent Medicine; Emergency Provider Emergency Medicine; PCP Nurse Practitioner Family; Visit Provider Internal Medicine Adolescent Medicine
DX: D53.9 Nutritional anemia, unspecified (principal); Z20.822 Contact with and (suspected) exposure to COVID-19; R51.9 Headache, unspecified; Z82.49 Family history of ischemic heart disease and other diseases of the circulatory system
CPT/HCPCS: 70450; 70551; 76705; 80053; 82131; 82272; 82607; 82728; 82746; 83010; 83090; 83516; 83540; 83550; 83615; 83735; 84100; 84145; 84436; 84443; 84479; 84550; 85014; 85018; 85025; 85651; 86140; 86340; 86850; 96365; 96375; 96376; 99285; C9803; G0328; G0378; J0595; J2405; P9016; U0003; U0005

== ENCOUNTER 2023-04-04 08:12 | Outpatient (CLI) | payer OTHER, SELFPAY ==
--- NOTE | 2023-04-04 08:17 | US_ITS ---
FINAL REPORT TECHNIQUE: Multiple transverse and longitudinal images CLINICAL HISTORY: ELEVATED LIVER ENZYMES COMPARISON: None FINDINGS: The gallbladder shows no wall thickening, distention or stone disease. No biliary ductal dilatation is appreciated. No fluid collections are seen. There is fatty infiltration of the liver present. Limited portions of the right kidney are unremarkable. IMPRESSION: No evidence of cholelithiasis or biliary ductal dilatation. Fatty infiltration of the liver. Reviewed, Interpreted and Dictated by Delisa Zelaya MD Transcribed by Nancy Lombardi Authenticated and [facility]
== END 2023-04-04 23:59 ==
LOC: RAD 08:12
PROVIDERS: PCP Internal Medicine Adolescent Medicine; Visit Provider Internal Medicine Adolescent Medicine
DX: R74.8 Abnormal levels of other serum enzymes (principal)
CPT/HCPCS: 76705

== ENCOUNTER 2023-06-30 15:17 | Emergency (ER) | payer OTHER, SELFPAY ==
[2023-06-30 15:45] VITALS: BP 122/84; PULSE 73; RESP 18; TEMP 36.5; O2SAT 96; BMI 32.8
[2023-06-30 15:54] LABS: Apearance,Urine Cloudy (Clear); Bilirubin,Urine Negative (Negative); Blood, Urine Trace (Negative); Color,Urine Dark Yellow (Yellow); Glucose,Urine (UA) Negative (Negative); Ketones,Urine Negative (Negative); Protein,Urine Negative (Negative); Specific Gravity, Urine 1.025 (1.005-1.030); UTC Leukocyte Esterase,Urine Negative (Negative); UTC Nitrate,Urine Negative (Negative); Urobilinogen,Urine 1 EU/dl (0.2)
--- NOTE | 2023-06-30 15:57 | ED_ITS ---
Discharge Plan Disposition Patient Disposition: Still a Patient Condition: Good Prescriptions Prescriptions: New pantoprazole [Protonix] 40 mg tablet,delayed release (DR/EC) 40 mg PO BID 14 Days Qty: 28 0RF ondansetron 4 mg tablet,disintegrating 4 mg PO Q6H PRN (Reason: nausea and vomiting) Qty: 10 0RF No Action topiramate 25 MG tablet 25 - 50 mg PO HS Patient Comments: TAKE 1 TABLET BY MOUTH EVERY NIGHT. MAY INCREASE TO 2 AT BEDTIME NEEDED meclizine 25 MG tablet,chewable 25 mg PO TIDP PRN (Reason: Dizziness) venlafaxine 75 MG tablet 75 mg PO BID levothyroxine 50 MCG tablet 50 mcg PO DAILY Qty: 30 3RF cyanocobalamin (vitamin B-12) 1,000 MCG/ML solution 1,000 mcg SQ DIRECTED Qty: 20 0RF Rx Instructions: Take injections twice weekly for 6 weeks, then as directed. (DME) syringe with needle 1 EACH syringe 1 each MC DIRECTED Qty: 60 0RF Referrals Follow up/Referrals: Pierre Fox MD [Primary Care Provider] - See instructions Activity Restrictions/Add. Instructions Additional Instructions/Restrictions: Follow-up with your PCP as scheduled on Saturday. Return to the ER for any worsening signs or symptoms including vomiting of blood bright red blood per rectum fever increasing pain etc. as needed Clinical Impressions Clinical Impression: Abdominal pain, acute, epigastric Instructions Patient Instructions: DI for Acute Abdominal Pain Discharge ED Provider: Romina Mckenna [facility] General Chief complaint: Abdominal Pain Stated complaint: Stomach pain with vomiting,skin rash Mode of Arrival: Ambulatory Source of Information: Patient Limitations: No Limitations Time Seen by Provider: 06/30/23 15:57 Description of Symptoms (Recalled from Triage Doc. by RN): Pt states that for the last week he has had bilateral epigastic pain that does not radiate. He has baseline pain, but gets worse after eating. He started to vomit yesterday. He woke up this morning with a rash all over his body. He denies any thing new or changes. HEENT Symptoms (Recalled from RN notes): No Resp Symptoms (Recalled from RN notes): No Skin Symptoms (Recalled from RN notes): No MS Symptoms (Recalled from RN notes): No Functional Status (Recalled from RN notes): n/a History of Present Illness Provider Complaint: Patient states that he started on Saturday with upper abdominal pain that has progressively got worse and yesterday he started with vomiting and continued pain in his abdomen and has had a headache States that this morning he woke up with rash all over his arms, chest and legs Denies known exposure to anything States that pain in abdomen has continued to get worse today and rates pain a 7 on pain scale Related Data Home Medications Medication Instructions Recorded Confirmed meclizine 25 mg chewable tablet 25 mg PO TIDP PRN Dizziness 05/28/21 05/28/21 topiramate 25 mg tablet 25 - 50 mg PO HS MIGRAINE 05/28/21 06/30/23 venlafaxine 75 mg tablet 75 mg PO BID MIGRAINES 05/28/21 06/30/23 Previous Rx's Medication Instructions Recorded cyanocobalamin (vitamin B-12) 1,000 mcg SQ DIRECTED #20 mL 05/29/21 1,000 mcg/mL injection solution levothyroxine 50 mcg tablet 50 mcg PO DAILY #30 tabs 05/29/21 syringe with needle 1 mL 25 gauge #60 ea 05/29/21 x 5/8 ondansetron 4 mg disintegrating 4 mg PO Q6H PRN nausea and 06/30/23 tablet vomiting #10 tabs pantoprazole 40 mg tablet,delayed 40 mg PO BID 14 days #28 tabs 06/30/23 release (Protonix) Allergies Allergy/AdvReac Type Severity Reaction Status Date / Time cephalexin [From Keflex] Allergy Verified 06/30/23 15:54 Cephalosporins Allergy Verified 06/30/23 15:54 Worker's Comp Is this a Worker's Comp case?: No [facility]SH [facility] Disclaimer: The information contained in this section may have been updated after the patient was seen, as this information can be updated by other users. Social History Smoking Status: Never smoker alcohol intake: never current occupational status: employed Travel in the last 8 weeks: None ROS Obtained: Yes All systems reviewed & no additional complaints except as documented and Yes Systems reviewed as appropriate & no additional complaints except as documented Constitutional Constitutional: Reports system reviewed and no additional complaints, except as documented, Reports as per HPI and Reports headache(s) ENT Ears, Nose, Mouth, and Throat: Reports system reviewed and no additional complaints, except as documented, Reports as per HPI and Reports headache(s) Cardiovascular Cardiovascular: Reports system reviewed and no additional complaints, except as documented and Reports as per HPI Respiratory Respiratory: Reports system reviewed and no additional complaints, except as documented and Reports as per HPI Gastrointestinal Gastrointestingal: Reports system reviewed and no additional complaints, except as documented, as per HPI, abdominal pain, nausea, vomiting and other (reports pain worse in abdomen after eating) Integumentary/Breasts Skin/Breast: Reports system reviewed and no additional complaints, except as documented, Reports as per HPI and Reports rash Neurologic Neurologic: Reports headache(s) Physical Exam General General appearance: alert and in no apparent distress Respiratory Respiratory exam: Present normal lung sounds bilaterally; Absent respiratory distress or wheezes Cardiovascular Cardiovascular exam: Present regular rate, normal rhythm and normal heart sounds Abdominal Exam Abdominal exam: Present soft and tenderness (reports tenderness with palpation in upper abdomen); Absent distention Neurological Exam Neurological exam: Present alert, oriented X3 and normal gait Skin Skin exam: Present rash (rash on right wrist, back and legs red, raised hive like that blanches) Medical Decision Making Walter Inquiry Pt receiving controlled substance: No Walter was queried for this patient: No Vital Signs: 06/30/23 15:45 Temperature 97.7 F Temperature Source Oral Pulse Rate [Right Radial] 73 Respiratory Rate 18 Blood Pressure [Right Arm] 122/84 Blood Pressure Mean [Right Arm] 96 Blood Pressure Source [Right Arm] Automatic Cuff Blood Pressure Position [Right Arm] Sitting 02 Sat by Pulse Oximetry 96 Oxygen Delivery Method Room Air Lab Data Lab results reviewed: Yes I reviewed the patient's lab results. Lab Results 06/30/23 15:35: Urine Color Dark yellow, Urine Appearance Cloudy, Urine pH 7.0, Ur Specific [place] 1.025, Urine Protein Negative, Urine Glucose (UA) Negative, Urine Ketones Negative, Urine Blood Trace, Urine Nitrate Negative, Urine Bilirubin Negative, Urine Urobilinogen 1, Ur Leukocyte Esterase Negative 06/30/23 16:15 06/30/23 16:15 Orders (Tests/Meds): ORDERS Category Date Time Status Urine Culture Stat Micro 06/30/23 15:33 Received Medical Decision Narrative: Discussed with patient and due to having worsening of abdominal pain, headache and rash that started today recommended transfer to the ED for further work up and evaluation and he agreed Called ED spoke with staff and patient was moved to the ED for futher work up and evaluation
[2023-06-30 16:08] VITALS: BP 142/101; PULSE 74; RESP 16; TEMP 36.6; O2SAT 97; BMI 32.6
--- NOTE | 2023-06-30 16:08 | PC.NURSE ---
PT ARRIVED TO ED FROM [facility]
--- NOTE | 2023-06-30 16:31 | HMH.EDGENADL ---
Discharge Plan Disposition Patient Disposition: Still a Patient Condition: Good Prescriptions Prescriptions: New pantoprazole [Protonix] 40 mg tablet,delayed release (DR/EC) 40 mg PO BID 14 Days Qty: 28 0RF ondansetron 4 mg tablet,disintegrating 4 mg PO Q6H PRN (Reason: nausea and vomiting) Qty: 10 0RF No Action topiramate 25 MG tablet 25 - 50 mg PO HS Patient Comments: TAKE 1 TABLET BY MOUTH EVERY NIGHT. MAY INCREASE TO 2 AT BEDTIME NEEDED meclizine 25 MG tablet,chewable 25 mg PO TIDP PRN (Reason: Dizziness) venlafaxine 75 MG tablet 75 mg PO BID levothyroxine 50 MCG tablet 50 mcg PO DAILY Qty: 30 3RF cyanocobalamin (vitamin B-12) 1,000 MCG/ML solution 1,000 mcg SQ DIRECTED Qty: 20 0RF Rx Instructions: Take injections twice weekly for 6 weeks, then as directed. (DME) syringe with needle 1 EACH syringe 1 each MC DIRECTED Qty: 60 0RF Referrals Follow up/Referrals: Pierre Fox MD [Primary Care Provider] - See instructions Activity Restrictions/Add. Instructions Additional Instructions/Restrictions: Follow-up with your PCP as scheduled on Saturday. Return to the ER for any worsening signs or symptoms including vomiting of blood bright red blood per rectum fever increasing pain etc. as needed Clinical Impressions Clinical Impression: Abdominal pain, acute, epigastric Instructions Patient Instructions: DI for Acute Abdominal Pain Discharge ED Provider: Romina Mckenna General Adult HPI <CALLUM Goodwin - Last Filed: 06/30/23 18:43> General Chief complaint: Abdominal Pain Stated complaint: Stomach pain with vomiting,skin rash Time Seen by Provider: 06/30/23 15:57 Mode of Arrival: Ambulatory Source of Information: Patient Limitations: No Limitations Description of Symptoms (Recalled from ER Triage Doc. by RN): Pt states that for the last week he has had bilateral epigastic pain that does not radiate. He has baseline pain, but gets worse after eating. He started to vomit yesterday. He woke up this morning with a rash all over his body. He denies any thing new or changes. History of Present Illness HPI narrative: Patient presents for evaluation of abdominal pain. Patient reports a 5-day history of epigastric abdominal pain worse after eating. It does dario but not go away completely. Patient's pain is currently 2 out of 10 and is located in the epigastrium. It does not radiate. Last night however patient patient began vomiting and was unable to tolerate oral intake. This morning he awoke with a widespread pruritic rash. Patient has a history of pernicious anemia as well as a family history of celiac disease. Patient currently denies chest pain shortness of breath fever chills hemoptysis hematochezia melena diarrhea. Patient also reports that he is still passing flatus and stool however stool was turned to light-colored. Related Data Home Medications Medication Instructions Recorded Confirmed meclizine 25 mg chewable tablet 25 mg PO TIDP PRN Dizziness 05/28/21 05/28/21 topiramate 25 mg tablet 25 - 50 mg PO HS MIGRAINE 05/28/21 06/30/23 venlafaxine 75 mg tablet 75 mg PO BID MIGRAINES 05/28/21 06/30/23 Previous Rx's Medication Instructions Recorded cyanocobalamin (vitamin B-12) 1,000 mcg SQ DIRECTED #20 mL 05/29/21 1,000 mcg/mL injection solution levothyroxine 50 mcg tablet 50 mcg PO DAILY #30 tabs 05/29/21 syringe with needle 1 mL 25 gauge #60 ea 05/29/21 x 5/8 ondansetron 4 mg disintegrating 4 mg PO Q6H PRN nausea and 06/30/23 tablet vomiting #10 tabs pantoprazole 40 mg tablet,delayed 40 mg PO BID 14 days #28 tabs 06/30/23 release (Protonix) Allergies Allergy/AdvReac Type Severity Reaction Status Date / Time cephalexin [From Keflex] Allergy Verified 06/30/23 15:54 Cephalosporins Allergy Verified 06/30/23 15:54 [facility] <CALLUM Goodwin - Last Filed: 06/30/23 18:43> [facility] Disclaimer: The information contained in this section may have been updated after the patient was seen, as this information can be updated by other users. Social History Smoking Status: Never smoker alcohol intake: never current occupational status: employed Travel in the last 8 weeks: None <CALLUM Goodwin - Last Filed: 06/30/23 18:43> ROS Obtained: Yes Systems reviewed as appropriate & no additional complaints except as documented Physical Exam <CALLUM Goodwin - Last Filed: 06/30/23 18:43> General General appearance: alert and in no apparent distress Head Head exam: atraumatic and normal inspection Eye Eye exam: Present normal appearance, PERRL and EOMI ENT ENT exam: Present normal exam, normal oropharynx and mucous membranes moist Neck Neck exam: Present normal inspection and full ROM; Absent lymphadenopathy Chest Chest inspection: Present normal inspection and symmetric chest wall rise; Absent tenderness Respiratory Respiratory exam: Present normal lung sounds bilaterally; Absent respiratory distress, wheezes or accessory muscle use Cardiovascular Cardiovascular exam: Present regular rate, normal rhythm, normal heart sounds, +S1 and +S2 Abdominal Exam Abdominal exam: Present soft, tenderness (Patient is moderately tender to palpation in the epigastrium) and normal bowel sounds; Absent guarding or rebound Extremities Exam Extremities exam: Present normal inspection and full ROM Back Exam Back exam: Present normal inspection and full ROM; Absent tenderness Neurological Exam Neurological exam: Present alert, oriented X3 and CN II-XII intact Psychiatric Psychiatric exam: Present normal affect and normal mood Skin Skin exam: Present warm, dry, normal color and rash (Patient has a diffuse irregularly bordered blanching scattered raised pruritic rash over the entire trunk and extremities.) Medical Decision Making <CALLUM Goodwin - Last Filed: 06/30/23 18:43> Medical Records Medical records reviewed: Yes I reviewed the patient's medical records. Walter Inquiry Pt receiving controlled substance: No Vital Signs: 06/30/23 15:45 06/30/23 16:08 06/30/23 17:56 Temperature 97.7 F 97.8 F Temperature Source Oral Oral Pulse Rate 82 Pulse Rate [Right Radial] 73 74 Respiratory Rate 18 16 Blood Pressure 125/90 Blood Pressure [Right Arm] 122/84 142/101 H Blood Pressure Mean 102 Blood Pressure Mean [Right Arm] 96 114 Blood Pressure Source Blood Pressure Source [Right Arm] Automatic Cuff Automatic Cuff Blood Pressure Position Blood Pressure Position [Right Arm] Sitting 02 Sat by Pulse Oximetry 96 97 99 Oxygen Delivery Method Room Air Room Air Room Air 06/30/23 18:00 06/30/23 18:31 06/30/23 18:50 Temperature 97.8 F Temperature Source Pulse Rate 84 64 71 Pulse Rate [Right Radial] Respiratory Rate 18 Blood Pressure 124/92 H 134/90 134/90 Blood Pressure [Right Arm] Blood Pressure Mean 99 103 Blood Pressure Mean [Right Arm] Blood Pressure Source Automatic Cuff Blood Pressure Source [Right Arm] Blood Pressure Position Sitting Blood Pressure Position [Right Arm] 02 Sat by Pulse Oximetry 98 98 Oxygen Delivery Method Room Air Room Air Room Air Lab Data Lab results reviewed: Yes I reviewed the patient's lab results. Lab Results 06/30/23 15:35: Urine Color Dark yellow, Urine Appearance Cloudy, Urine pH 7.0, Ur Specific Bieber 1.025, Urine Protein Negative, Urine Glucose (UA) Negative, Urine Ketones Negative, Urine Blood Trace, Urine Nitrate Negative, Urine Bilirubin Negative, Urine Urobilinogen 1, Ur Leukocyte Esterase Negative 06/30/23 16:15: WBC 6.7, RBC 5.07, Hgb 15.5, Hct 47.1, MCV 92.7, MCH 30.6, MCHC 33.0, RDW 14.1, Plt Count 205, MPV 8.5, Neut % (Auto) 73.2, Lymph % (Auto) 20.6, [place] % (Auto) 5.2, Eos % (Auto) 0.6, Baso % (Auto) 0.4, Neut # (Auto) 4.9, Lymph # (Auto) 1.4, [place] # (Auto) 0.4, Eos # (Auto) 0.0, Baso # (Auto) 0.0, Sodium 138, Potassium 4.1, Chloride 107, Carbon Dioxide 25, Anion Gap 10.1, BUN 14, Creatinine 0.80, Estimated Creat Clear 180, Estimated GFR 105, Est GFR ( Amer) 126, Glucose 128 H, Calcium 9.1, Total Bilirubin 1.1, AST 67 H, ALT 81 H, Alkaline Phosphatase 74, Total Protein 7.8, Albumin 4.3, Globulin 3.5 H, Albumin/Globulin Ratio 1.2, Lipase 156 06/30/23 16:15 06/30/23 16:15 Orders (Tests/Meds): ED MEDICATIONS Discontinued Medications Generic Name Dose Route Start Last Admin Trade Name Freq PRN Reason Stop Dose Admin Acetaminophen 1,000 mg 06/30/23 16:39 06/30/23 17:43 Acetaminophen 1,000mg/100ml Vial IV 06/30/23 16:40 1,000 mg ONCE ONE Administration Belladonna Alkaloids 60 ml 06/30/23 16:48 06/30/23 17:45 Belladonna Alkaloids 60 Ml Ml PO 06/30/23 16:49 60 ml ONCE ONE Administration Dexamethasone Sodium Phosphate 10 mg 06/30/23 16:39 06/30/23 17:46 Dexamethasone 4mg/Ml 5ml Mdv IV 06/30/23 16:40 10 mg ONCE ONE Administration Diphenhydramine HCl 50 mg 06/30/23 16:39 06/30/23 17:47 Diphenhydramine 50mg/Ml Vial IV 06/30/23 16:40 50 mg ONCE ONE Administration Lactated Ringer's 1,000 mls @ 999 mls/hr 06/30/23 16:39 06/30/23 17:48 Lactated Ringer's 1000 Ml Bag IV 06/30/23 17:39 999 mls/hr .Q1H1M ONE Administration Iopamidol 75 ml 06/30/23 17:18 06/30/23 17:19 Iopamidol-370 (76%);100ml Bottle IV 06/30/23 17:19 75 ml ONCE ONE Administration Ketorolac Tromethamine 15 mg 06/30/23 16:39 06/30/23 17:47 Ketorolac 30mg/Ml Vial IV 06/30/23 16:40 15 mg ONCE ONE Administration Sodium Chloride 10 ml 06/30/23 17:18 06/30/23 17:19 Sodium Chloride 0.9% 10ml Syr (Rad Only) IV 06/30/23 17:19 10 ml ONCE ONE Administration ORDERS Category Date Time Status CT abdomen pelvis w con Stat Cat Scan 06/30/23 16:40 Completed CBC w/Auto Diff [Complete Blood Count Auto Diff] Stat Lab 06/30/23 16:15 Completed CMP [Comprehensive Metabolic Panel] Stat Lab 06/30/23 16:15 Completed Lipase Stat Lab 06/30/23 16:15 Completed Urine Culture Stat Micro 06/30/23 15:33 Received Medical Decision Narrative: In summary patient is a 43-year-old male who presents to the emergency department for evaluation of gastric abdominal pain and rash. Patient is hemodynamically stable upon arrival, afebrile. Physical exam is remarkable for epigastric abdominal pain without rebound guarding or rigidity. And a diffuse body wide irregularly bordered blanching slightly raised pruritic rash. Differential diagnosis includes gastric ulcer versus pancreatitis versus cholelithiasis versus cholecystitis versus choledocholithiasis versus urticaria versus food allergy versus atopic dermatitis [place]. Initial workup will be conducted with hematologic labs CT scan of the abdomen pelvis with contrast. Initial interventions include crystalloid bolus Toradol Tylenol Decadron Benadryl. Initial workup reviewed by me shows that his hematologic labs are nonactionable and normal with exception of slightly elevated AST and ALT which fits with his history of [place]. My informal review of CT scan of the abdomen pelvis with contrast shows no acute processes.. Upon repeat evaluation patient has had reduction of his pain to 0 after administration of the GI cocktail and IV medications.. Given this and interactive discussion with the patient regarding the remaining differential diagnosis including gastritis versus esophagitis versus possible ulcer disease. Patient will follow-up with his PCP on Saturday and will call tomorrow for referral to GI/general surgery for endoscopy. I will call in the prescription for PPI and antinausea medication for the patient. Advised him to initiate a bland diet. Patient verbalized understanding and agreement <Romina Mckenna MD - Last Filed: 06/30/23 20:51> Vital Signs: 06/30/23 15:45 06/30/23 16:08 06/30/23 17:56 Temperature 97.7 F 97.8 F Temperature Source Oral Oral Pulse Rate 82 Pulse Rate [Right Radial] 73 74 Respiratory Rate 18 16 Blood Pressure 125/90 Blood Pressure [Right Arm] 122/84 142/101 H Blood Pressure Mean 102 Blood Pressure Mean [Right Arm] 96 114 Blood Pressure Source Blood Pressure Source [Right Arm] Automatic Cuff Automatic Cuff Blood Pressure Position Blood Pressure Position [Right Arm] Sitting 02 Sat by Pulse Oximetry 96 97 99 Oxygen Delivery Method Room Air Room Air Room Air 06/30/23 18:00 06/30/23 18:31 06/30/23 18:50 Temperature 97.8 F Temperature Source Pulse Rate 84 64 71 Pulse Rate [Right Radial] Respiratory Rate 18 Blood Pressure 124/92 H 134/90 134/90 Blood Pressure [Right Arm] Blood Pressure Mean 99 103 Blood Pressure Mean [Right Arm] Blood Pressure Source Automatic Cuff Blood Pressure Source [Right Arm] Blood Pressure Position Sitting Blood Pressure Position [Right Arm] 02 Sat by Pulse Oximetry 98 98 Oxygen Delivery Method Room Air Room Air Room Air Lab Data Lab Results 06/30/23 15:35: Urine Color Dark yellow, Urine Appearance Cloudy, Urine pH 7.0, Ur Specific Bieber 1.025, Urine Protein Negative, Urine Glucose (UA) Negative, Urine Ketones Negative, Urine Blood Trace, Urine Nitrate Negative, Urine Bilirubin Negative, Urine Urobilinogen 1, Ur Leukocyte Esterase Negative 06/30/23 16:15: WBC 6.7, RBC 5.07, Hgb 15.5, Hct 47.1, MCV 92.7, MCH 30.6, MCHC 33.0, RDW 14.1, Plt Count 205, MPV 8.5, Neut % (Auto) 73.2, Lymph % (Auto) 20.6, [place] % (Auto) 5.2, Eos % (Auto) 0.6, Baso % (Auto) 0.4, Neut # (Auto) 4.9, Lymph # (Auto) 1.4, [place] # (Auto) 0.4, Eos # (Auto) 0.0, Baso # (Auto) 0.0, Sodium 138, Potassium 4.1, Chloride 107, Carbon Dioxide 25, Anion Gap 10.1, BUN 14, Creatinine 0.80, Estimated Creat Clear 180, Estimated GFR 105, Est GFR ( Amer) 126, Glucose 128 H, Calcium 9.1, Total Bilirubin 1.1, AST 67 H, ALT 81 H, Alkaline Phosphatase 74, Total Protein 7.8, Albumin 4.3, Globulin 3.5 H, Albumin/Globulin Ratio 1.2, Lipase 156 Orders (Tests/Meds): ED MEDICATIONS Discontinued Medications Generic Name Dose Route Start Last Admin Trade Name Freq PRN Reason Stop Dose Admin Acetaminophen 1,000 mg 06/30/23 16:39 06/30/23 17:43 Acetaminophen 1,000mg/100ml Vial IV 06/30/23 16:40 1,000 mg ONCE ONE Administration Belladonna Alkaloids 60 ml 06/30/23 16:48 06/30/23 17:45 Belladonna Alkaloids 60 Ml Ml PO 06/30/23 16:49 60 ml ONCE ONE Administration Dexamethasone Sodium Phosphate 10 mg 06/30/23 16:39 06/30/23 17:46 Dexamethasone 4mg/Ml 5ml Mdv IV 06/30/23 16:40 10 mg ONCE ONE Administration Diphenhydramine HCl 50 mg 06/30/23 16:39 06/30/23 17:47 Diphenhydramine 50mg/Ml Vial IV 06/30/23 16:40 50 mg ONCE ONE Administration Lactated Ringer's 1,000 mls @ 999 mls/hr 06/30/23 16:39 06/30/23 17:48 Lactated Ringer's 1000 Ml Bag IV 06/30/23 17:39 999 mls/hr .Q1H1M ONE Administration Iopamidol 75 ml 06/30/23 17:18 06/30/23 17:19 Iopamidol-370 (76%);100ml Bottle IV 06/30/23 17:19 75 ml ONCE ONE Administration Ketorolac Tromethamine 15 mg 06/30/23 16:39 06/30/23 17:47 Ketorolac 30mg/Ml Vial IV 06/30/23 16:40 15 mg ONCE ONE Administration Sodium Chloride 10 ml 06/30/23 17:18 06/30/23 17:19 Sodium Chloride 0.9% 10ml Syr (Rad Only) IV 06/30/23 17:19 10 ml ONCE ONE Administration ORDERS Category Date Time Status CT abdomen pelvis w con Stat Cat Scan 06/30/23 16:40 Completed CBC w/Auto Diff [Complete Blood Count Auto Diff] Stat Lab 06/30/23 16:15 Completed CMP [Comprehensive Metabolic Panel] Stat Lab 06/30/23 16:15 Completed Lipase Stat Lab 06/30/23 16:15 Completed Urine Culture Stat Micro 06/30/23 15:33 Received Medical Decision Narrative: In summary patient is a 43-year-old male who presents to the emergency department for evaluation of gastric abdominal pain and rash. Patient is hemodynamically stable upon arrival, afebrile. Physical exam is remarkable for epigastric abdominal pain without rebound guarding or rigidity. And a diffuse body wide irregularly bordered blanching slightly raised pruritic rash. Differential diagnosis includes gastric ulcer versus pancreatitis versus cholelithiasis versus cholecystitis versus choledocholithiasis versus urticaria versus food allergy versus atopic dermatitis [place]. Initial workup will be conducted with hematologic labs CT scan of the abdomen pelvis with contrast. Initial interventions include crystalloid bolus Toradol Tylenol Decadron Benadryl. Initial workup reviewed by me shows that his hematologic labs are nonactionable and normal with exception of slightly elevated AST and ALT which fits with his history of [place]. My informal review of CT scan of the abdomen pelvis with contrast shows no acute processes.. Upon repeat evaluation patient has had reduction of his pain to 0 after administration of the GI cocktail and IV medications.. Given this and interactive discussion with the patient regarding the remaining differential diagnosis including gastritis versus esophagitis versus possible ulcer disease. Patient will follow-up with his PCP on Saturday and will call tomorrow for referral to GI/general surgery for endoscopy. I will call in the prescription for PPI and antinausea medication for the patient. Advised him to initiate a bland diet. Patient verbalized understanding and agreement Romina Mckenna MD Attestation: I was consulted by the CHEY and we discussed the complexity of the problems being addressed. I approved the treatment and management plan for this patient's care in the emergency department, thus performing a substantive portion of the medical decision making. Critical Care <CALLUM Goodwin - Last Filed: 06/30/23 18:43> Critical Care Time Critical Care Time: No
--- NOTE | 2023-06-30 16:40 | CT_ITS ---
PROCEDURE INFORMATION: Exam: CT Abdomen And Pelvis With Contrast Exam date and time: 06/30/2023 5:09 PM Age: 43 years old Clinical indication: Abdominal pain; Epigastric; Additional info: Acute epigastric pain TECHNIQUE: Imaging protocol: Computed tomography of the abdomen and pelvis with contrast. Radiation optimization: All CT scans at this facility use at least one of these dose optimization techniques: automated exposure control; mA and/or kV adjustment per patient size (includes targeted exams where dose is matched to clinical indication); or iterative reconstruction. Contrast material: ISOVUE; Contrast volume: 75 ml; Contrast route: IV; COMPARISON: US LIVER 04/04/2023 8:38 AM FINDINGS: Liver: Liver appears diffusely mildly fatty but otherwise unremarkable. Gallbladder and bile ducts: Normal. No calcified stones. No ductal dilation. Pancreas: Normal. No ductal dilation. Spleen: Normal. No splenomegaly. Adrenal glands: Normal. No mass. Kidneys and ureters: Normal. No hydronephrosis. Stomach and bowel: Unremarkable. No obstruction. No mucosal thickening. Appendix: The appendix is visualized and appears normal. Intraperitoneal space: Unremarkable. No free air. No significant fluid collection. Vasculature: Unremarkable. No abdominal aortic aneurysm. Lymph nodes: Unremarkable. No enlarged lymph nodes. Urinary bladder: Unremarkable as visualized. Reproductive: Unremarkable as visualized. Bones/joints: Mild levoscoliosis of the lumbar spine. Mild multilevel degenerative disc changes throughout the lower spine. No vertebral body compression or acute fracture. Soft tissues: Unremarkable. IMPRESSION: Mildly fatty liver and chronic osseous changes. Otherwise unremarkable CT abdomen and pelvis.
[2023-06-30 16:47] LABS: Basophils % 0.4 % (0.1-2.0); Eosinophils % 0.6 % (0.1-12.0); Hematocrit 47.1 % (42.0-52.0); Hemoglobin 15.5 g/dL (14.1-18.0); Lymphocytes # 1.4 K/mm3 (0.7-4.5); Lymphocytes % 20.6 % (10-50); Mean Corpuscular Hemoglobin 30.6 pg (27.0-31.2); Mean Corpuscular Volume 92.7 fl (80-94); Mean Platelet Volume 8.5 fl (7.4-10.4); Monocytes # 0.4 K/mm3 (0.1-1.0); Monocytes % 5.2 % (1.7-9.3); Neutrophils # 4.9 K/mm3 (1.8-7.8); Neutrophils % 73.2 % (37.0-80.0); Platelet Count 205 K/mm3 (142-424); Red Blood Count 5.07 M/mm3 (4.60-6.20); Red Cell Distribution Width 14.1 % (11.5-17.5); White Blood Count 6.7 K/mm3 (4.8-10.8)
[2023-06-30 16:49] LABS: Chloride 107 mmol/L (98-107); Potassium 4.1 mmoL/L (3.5-5.1); Sodium 138 mmol/L (136-145)
[2023-06-30 16:51] LABS: Alanine Aminotransferase 81 U/L (12-78); Alkaline Phosphatase 74 U/L (38-126); Aspartate Amino Transferase 67 U/L (17-59); Bilirubin,Total 1.1 mg/dl (0.2-1.3); Blood Urea Nitrogen 14 mg/dl (9-20); Creatinine Clearance Estimated 180 mL/min (50-200); Estimated Glomerular Filt Rate 105 ml/min (>60); GFR (African American) 126 ML/MIN (>60)
[2023-06-30 16:52] LABS: Albumin Level 4.3 g/dl (3.5-5.0); Albumin/Globulin Ratio 1.2 (1.1-1.8); Anion Gap 10.1 mEq/L (5-15); Calcium 9.1 mg/dl (8.4-10.2); Carbon Dioxide 25 mmol/L (22.0-30.0); Globulin 3.5 g/dL (1.3-3.2); Glucose 128 mg/dl (74-100); Lipase 156 U/L (23-300); Total Protein,Serum 7.8 g/dl (6.3-8.2)
[2023-06-30] MEDS: IOPAMIDOL-370 (76%);100ML BOTTLE 75 ML IV (17:19)
[2023-06-30] MEDS: SODIUM CHLORIDE 0.9% 10ML SYR (RAD ONLY) 10 ML IV (17:19)
[2023-06-30] MEDS: ACETAMINOPHEN 1,000MG/100ML VIAL 1000 MG IV (17:43)
[2023-06-30] MEDS: BELLADONNA ALKALOIDS 60 ML ML PO (17:45)
[2023-06-30] MEDS: DEXAMETHASONE 4MG/ML 5ML MDV 10 MG IV (17:46)
[2023-06-30] MEDS: KETOROLAC 30MG/ML VIAL 15 MG IV (17:47)
[2023-06-30] MEDS: diphenhydrAMINE 50MG/ML VIAL 50 MG IV (17:47)
[2023-06-30] MEDS: LACTATED RINGERS 1000ML 1,000 ML 999 ML IV (17:48)
[2023-06-30 17:56] VITALS: BP 125/90; PULSE 82; O2SAT 99
[2023-06-30 18:00] VITALS: BP 124/92; PULSE 84; O2SAT 98
--- NOTE | 2023-06-30 18:03 | PC.NURSE ---
ROUNDED ON PT NO NEEDS AT THIS TIME CALL LIGHT IN REACH
[2023-06-30 18:31] VITALS: BP 134/90; PULSE 64; O2SAT 98
[2023-06-30 18:50] VITALS: BP 134/90; PULSE 71; RESP 18; TEMP 36.6; O2SAT 98
== END 2023-06-30 18:56 | disposition still patient (30) ==
LOC: UTC 15:21 → ER 15:58
PROVIDERS: Nurse Practitioner; Physician Assistant; Emergency Provider Emergency Medicine; PCP Internal Medicine Adolescent Medicine
DX: R10.13 Epigastric pain (principal); R11.2 Nausea with vomiting, unspecified; L29.9 Pruritus, unspecified
CPT/HCPCS: 74177; 80053; 81003; 83690; 85025; 87086; 96361; 96374; 96375; 99285; J0131; Q9967

== ENCOUNTER 2023-07-02 13:19 | Outpatient (CLI) | payer OTHER, SELFPAY ==
[2023-07-02 14:07] LABS: Basophils % 0.4 % (0.1-2.0); Eosinophils % 0.1 % (0.1-12.0); Hematocrit 43.4 % (42.0-52.0); Hemoglobin 14.4 g/dL (14.1-18.0); Lymphocytes # 3.1 K/mm3 (0.7-4.5); Lymphocytes % 34.3 % (10-50); Mean Corpuscular HGB Conc 33.1 g/dL (31.8-35.4); Mean Corpuscular Hemoglobin 30.7 pg (27.0-31.2); Mean Corpuscular Volume 92.9 fl (80-94); Monocytes # 0.4 K/mm3 (0.1-1.0); Monocytes % 4.9 % (1.7-9.3); Neutrophils # 5.4 K/mm3 (1.8-7.8); Neutrophils % 60.3 % (37.0-80.0); Platelet Count 236 K/mm3 (142-424); Red Blood Count 4.67 M/mm3 (4.60-6.20); Red Cell Distribution Width 14.3 % (11.5-17.5)
[2023-07-02 14:35] LABS: Erythrocyte Sedimentation Rate 12 mm/hr (0-15)
[2023-07-02 14:49] LABS: Alanine Aminotransferase 68 U/L (12-78); Albumin/Globulin Ratio 1.4 (1.1-1.8); Alkaline Phosphatase 81 U/L (38-126); Anion Gap 9.9 mEq/L (5-15); Aspartate Amino Transferase 56 U/L (17-59); Bilirubin,Total 0.6 mg/dl (0.2-1.3); Blood Urea Nitrogen 20 mg/dl (9-20); Calcium 8.8 mg/dl (8.4-10.2); Carbon Dioxide 28 mmol/L (22.0-30.0); Chloride 106 mmol/L (98-107); Estimated Glomerular Filt Rate 65 ml/min (>60); GFR (African American) 79 ML/MIN (>60); Globulin 2.9 g/dL (1.3-3.2); Glucose 73 mg/dl (74-100); Potassium 3.9 mmoL/L (3.5-5.1); Sodium 140 mmol/L (136-145); Total Protein,Serum 6.9 g/dl (6.3-8.2)
[2023-07-02 14:55] LABS: C-Reactive Protein 7.1 mg/L (0-4)
[2023-07-02 15:06] LABS: T4 (Thyroxine) 6.1 ug/dl (5.53-11.0)
[2023-07-02 15:56] LABS: Vitamin B12 593 pg/mL (239-931)
[2023-07-03 09:12] LABS: Complement C3 130 mg/dL (82-167)
[2023-07-03 15:29] LABS: Complement, Total (CH50) 59 U/mL (>41); Deamidated Gliadin Abs, IgA 5 units (0-19); Deamidated Gliadin Abs, IgG 2 units (0-19)
[2023-07-05 11:33] LABS: Cold Agglutinin Titer, Quant Negative (Neg <1:32)
[2023-07-10 11:23] LABS: F026-IgE Pork < 0.10 kU/L (Class 0); F027-IgE Beef < 0.10 kU/L (Class 0); F088-IgE Lamb < 0.10 kU/L (Class 0); Immunoglobulin E, Total 32 IU/mL (6-495); O215-IgE Alpha-Gal < 0.10 kU/L (Class 0)
[2023-07-10 16:02] LABS: Antinuclear Antibodies, IFA Positive
== END 2023-07-02 23:59 | disposition home or self-care (01) ==
LOC: LAB 13:20
PROVIDERS: PCP Internal Medicine Adolescent Medicine; Visit Provider Internal Medicine Adolescent Medicine
DX: T78.3XXA Angioneurotic edema, initial encounter; E03.9 Hypothyroidism, unspecified; D75.89 Other specified diseases of blood and blood-forming organs
CPT/HCPCS: 36415; 80053; 82607; 82746; 83516; 84436; 84443; 85025; 85651; 86038; 86140; 86157; 86161; 86162

== ENCOUNTER 2023-08-26 11:28 | Outpatient (CLI) | payer OTHER, SELFPAY | END 2023-08-26 23:59 | disposition home or self-care (01) | LOC: LAB 11:32 | PROVIDERS: PCP Internal Medicine Adolescent Medicine; Visit Provider Nurse Practitioner | DX: L50.0 Allergic urticaria (principal) | CPT/HCPCS: 36415; 86008; 86352 ==

== ENCOUNTER 2023-12-22 10:26 | Emergency (ER) | payer OTHER, SELFPAY ==
[2023-12-22 11:07] VITALS: BP 129/90; PULSE 78; RESP 18; TEMP 36.8; O2SAT 98; BMI 33.6
--- NOTE | 2023-12-22 11:10 | ED_ITS ---
Discharge Plan Disposition Patient Disposition: Home, Self-Care Condition: Good Prescriptions Prescriptions: New methylprednisolone 4 mg Tablets,Dose Pack 4 mg PO DIRECTED 6 Days Qty: 21 0RF Rx Instructions: Take 1 pack as directed for 6 days No Action topiramate 25 MG tablet 25 - 50 mg PO HS Patient Comments: TAKE 1 TABLET BY MOUTH EVERY NIGHT. MAY INCREASE TO 2 AT BEDTIME NEEDED meclizine 25 MG tablet,chewable 25 mg PO TIDP PRN (Reason: Dizziness) venlafaxine 75 MG tablet 75 mg PO BID levothyroxine 50 MCG tablet 50 mcg PO DAILY Qty: 30 3RF cyanocobalamin (vitamin B-12) 1,000 MCG/ML solution 1,000 mcg SQ DIRECTED Qty: 20 0RF Rx Instructions: Take injections twice weekly for 6 weeks, then as directed. (DME) syringe with needle 1 EACH syringe 1 each MC DIRECTED Qty: 60 0RF pantoprazole [Protonix] 40 mg tablet,delayed release (DR/EC) 40 mg PO BID 14 Days Qty: 28 0RF ondansetron 4 mg tablet,disintegrating 4 mg PO Q6H PRN (Reason: nausea and vomiting) Qty: 10 0RF Referrals Follow up/Referrals: Pierre Fox MD [Primary Care Provider] - See instructions Activity Restrictions/Add. Instructions Additional Instructions/Restrictions: Don't start the oral steroids until tomorrow. Follow up with your regular doctor. Follow up with your sql consultant. GO TO THE ER FOR ANY WORSENING SYMPTOMS OR CONCERNS Clinical Impressions Clinical Impression: Pruritic rash Instructions Patient Instructions: Methylprednisolone, Dexamethasone Injection Print Language Print Language: Kazakh Discharge ED Provider: Sen Avery [facility] General Stated complaint: autoimmune hives Mode of Arrival: Ambulatory Source of Information: Patient Time Seen by Provider: 12/22/23 11:09 Description of Symptoms (Recalled from Triage Doc. by RN): AUTOIMMUNE HIVES, NEEDS STERIODS HEENT Symptoms (Recalled from RN notes): No Resp Symptoms (Recalled from RN notes): No Skin Symptoms (Recalled from RN notes): Yes MS Symptoms (Recalled from RN notes): No Functional Status (Recalled from RN notes): WNL History of Present Illness Provider Complaint: He states that he has had a very itchy rash on his whole phyllis dy for the past 1 day. He has a history of an autoimmune disorder that causes him to have episodes of this itchy rash. He sees a sql consultant for this. He states that when this rash breaks out he needs steroids to get it relieved. Related Data Home Medications ?Medication ?Instructions ?Recorded ?Confirmed meclizine 25 mg chewable tablet 25 mg PO TIDP PRN Dizziness 05/28/21 05/28/21 topiramate 25 mg tablet 25 - 50 mg PO HS MIGRAINE 05/28/21 06/30/23 venlafaxine 75 mg tablet 75 mg PO BID MIGRAINES 05/28/21 12/22/23 Previous Rx's ?Medication ?Instructions ?Recorded cyanocobalamin (vitamin B-12) 1,000 mcg SQ DIRECTED #20 mL 05/29/21 1,000 mcg/mL injection solution levothyroxine 50 mcg tablet 50 mcg PO DAILY #30 tabs 05/29/21 syringe with needle 1 mL 25 gauge #60 ea 05/29/21 x 5/8 ondansetron 4 mg disintegrating 4 mg PO Q6H PRN nausea and 06/30/23 tablet vomiting #10 tabs pantoprazole 40 mg tablet,delayed 40 mg PO BID 14 days #28 tabs 06/30/23 release (Protonix) methylprednisolone 4 mg tablets in 4 mg PO DIRECTED 6 days #21 tabs 12/22/23 a dose pack Allergies Allergy/AdvReac Type Severity Reaction Status Date / Time cephalexin [From Keflex] Allergy Verified 06/30/23 15:54 Cephalosporins Allergy Verified 06/30/23 15:54 Worker's Comp Is this a Worker's Comp case?: No [facility] Disclaimer: The information contained in this section may have been updated after the patient was seen, as this information can be updated by other users. Social History Smoking Status: Unknown if ever smoked alcohol intake: never current occupational status: employed Travel in the last 8 weeks: None ROS Obtained: Yes All systems reviewed & no additional complaints except as documented Constitutional Constitutional: Denies chills and Denies fever(s) Eyes Eyes: Denies eye discharge ENT Ears, Nose, Mouth, and Throat: Denies dizziness, Denies otalgia and Denies sore throat Cardiovascular Cardiovascular: Denies chest pain Respiratory Respiratory: Denies shortness of breath, Denies chest congestion, Denies cough, Denies stridor and Denies wheezing Gastrointestinal Gastrointestingal: Denies nausea or vomiting Musculoskeletal Musculoskeletal: Reports system reviewed and no additional complaints, except as documented and Denies arthralgias Integumentary/Breasts Skin/Breast: Reports as per HPI and Reports rash Neurologic Neurologic: Denies dizziness and Denies paresthesias Allergic/Immunologic Allergic/Immunologic: Denies wheezing Physical Exam General General appearance: alert and in no apparent distress Head Head exam: atraumatic, normocephalic and normal inspection Eye Eye exam: Present normal appearance, PERRL and EOMI ENT ENT exam: Present normal exam, normal oropharynx, mucous membranes moist, TM's normal bilaterally and normal external ear exam Neck Neck exam: Present normal inspection, full ROM and trachea midline; Absent meningismus or lymphadenopathy Chest Chest inspection: Present normal inspection and symmetric chest wall rise; Absent tenderness Respiratory Respiratory exam: Present normal lung sounds bilaterally; Absent respiratory distress Cardiovascular Cardiovascular exam: Present regular rate and normal rhythm; Absent JVD Abdominal Exam Abdominal exam: Present soft and normal bowel sounds; Absent distention, tenderness or guarding Extremities Exam Extremities exam: Present normal inspection, full ROM and normal capillary refill; Absent calf tenderness Back Exam Back exam: Present normal inspection; Absent tenderness Neurological Exam Neurological exam: Present alert and oriented X3 Psychiatric Psychiatric exam: Present normal affect and normal mood Skin Skin exam: Present rash (there are small maculopapular lesions on his body) Lymphatic Lymphatic Findings: no adenopathy Medical Decision Making Medical Records Medical records reviewed: No I reviewed the patient's medical records. Screening: Per USPSTF and CDC recommendations, given the prevalence of disease in our region, it is our hospital?s policy to screen for HIV and viral Hepatitis for all patients aged 18 and over and those with ongoing risk factors. Walter Inquiry Pt receiving controlled substance: No Vital Signs: 12/22/23 11:07 Temperature 98.2 F Temperature Source Oral Pulse Rate [Left Brachial] 78 Respiratory Rate 18 Blood Pressure [Left Arm] 129/90 Blood Pressure Mean [Left Arm] 103 02 Sat by Pulse Oximetry 98
[2023-12-22] MEDS: DEXAMETHASONE 4MG/ML 1ML VIAL 8 MG IM (11:36)
[2023-12-22 11:51] VITALS: BP 129/90; PULSE 78; RESP 18; TEMP 36.8
== END 2023-12-22 11:53 | disposition home or self-care (01) ==
PROVIDERS: Emergency Provider Nurse Practitioner Family; PCP Internal Medicine Adolescent Medicine
DX: L29.9 Pruritus, unspecified (principal); R21 Rash and other nonspecific skin eruption; Z86.2 Personal history of diseases of the blood and blood-forming organs and certain disorders involving the immune mechanism
CPT/HCPCS: 96372; 99212; G0381; J1100

== ENCOUNTER 2024-05-13 16:57 | Emergency (ER) | payer OTHER, SELFPAY ==
[2024-05-13 17:13] VITALS: BP 134/83; PULSE 116; RESP 20; TEMP 38.8; O2SAT 96; BMI 31.8
[2024-05-13] MEDS: IBUPROFEN 600 MG TABLET PO (17:30)
[2024-05-13] MEDS: ACETAMINOPHEN 325MG TAB 650 MG PO (17:31)
[2024-05-13 17:36] LABS: Coronavirus 19, PCR Not Detected (NotDetected); Influenza B, PCR Not Detected (NotDetected)
[2024-05-13] MEDS: LACTATED RINGERS 1000ML 1,000 ML 999 ML IV (18:09)
[2024-05-13] MEDS: ONDANSETRON 4MG/2ML VIAL 4 MG IV (18:09)
--- NOTE | 2024-05-13 18:14 | HMH.EDGENADL ---
Discharge Plan Disposition Patient Disposition: Home, Self-Care Condition: Good Prescriptions Prescriptions: New [id number] [Bromfed DM] 2-30-10 mg/5 mL syrup 5 ml PO Q6H PRN (Reason: allergy symptoms) Qty: 118 0RF ondansetron 4 mg tablet,disintegrating 4 mg PO Q8H PRN (Reason: nausea and vomiting) 4 Days Qty: 12 0RF No Action topiramate 25 MG tablet 25 - 50 mg PO HS Patient Comments: TAKE 1 TABLET BY MOUTH EVERY NIGHT. MAY INCREASE TO 2 AT BEDTIME NEEDED venlafaxine 75 MG tablet 75 mg PO BID levothyroxine 50 MCG tablet 50 mcg PO DAILY Qty: 30 3RF cyanocobalamin (vitamin B-12) 1,000 MCG/ML solution 1,000 mcg SQ DIRECTED Qty: 20 0RF Rx Instructions: Take injections twice weekly for 6 weeks, then as directed. (DME) syringe with needle 1 EACH syringe 1 each MC DIRECTED Qty: 60 0RF pantoprazole [Protonix] 40 mg tablet,delayed release (DR/EC) 40 mg PO BID 14 Days Qty: 28 0RF Referrals Follow up/Referrals: Pierre Fox MD [Primary Care Provider] - See instructions Activity Restrictions/Add. Instructions Additional Instructions/Restrictions: You were evaluated in the emergency department today and diagnosed with the flu. 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 Take Tylenol and ibuprofen every 4-6 hours as needed for pain/fever. Return to the emergency department for new or worsening symptoms. Clinical Impressions Clinical Impression: Influenza A Stand Alone Forms Stand Alone Forms: Work/School Release Instructions Patient Instructions: DI for Influenza -- Adult Print Language Print Language: [place] Discharge ED Provider: Saray Tuttle General Adult HPI General Chief complaint: Upper Respiratory Infection Stated complaint: fever, body aches, nausea Time Seen by Provider: 05/13/24 17:14 Mode of Arrival: Wheelchair Description of Symptoms (Recalled from ER Triage Doc. by RN): Pt c/o flu like symptoms that started yesterday . PT c/o fever, body aches, chills and headache History of Present Illness HPI narrative: This patient is a 43-year-old male with a history of obesity, pernicious anemia, hypothyroidism presenting to the emergency department for evaluation with concern for fever, body aches, chills, headache, cough, nausea. He notes that he has flulike symptoms but this feels worse than the flu. He is concerned that his labs could be off because he has not been keeping up with his B12 shots and also has not taken his levothyroxine in a few days. No other concerns or complaints noted at this time. His son at home is also sick. Related Data Home Medications ?Medication ?Instructions ?Recorded ?Confirmed topiramate 25 mg tablet 25 - 50 mg PO HS MIGRAINE 05/28/21 05/13/24 venlafaxine 75 mg tablet 75 mg PO BID MIGRAINES 05/28/21 05/13/24 Previous Rx's ?Medication ?Instructions ?Recorded cyanocobalamin (vitamin B-12) 1,000 mcg SQ DIRECTED #20 mL 05/29/21 1,000 mcg/mL injection solution levothyroxine 50 mcg tablet 50 mcg PO DAILY #30 tabs 05/29/21 syringe with needle 1 mL 25 gauge #60 ea 05/29/21 x 5/8 pantoprazole 40 mg tablet,delayed 40 mg PO BID 14 days #28 tabs 06/30/23 release (Protonix) ngrsaemjkwurvjx-uonktlssbgmsfxu-GF 5 ml PO Q6H PRN allergy symptoms 05/13/24 2 mg-30 mg-10 mg/5 mL oral syrup #118 mL (Bromfed DM) ondansetron 4 mg disintegrating 4 mg PO Q8H PRN nausea and 05/13/24 tablet vomiting 4 days #12 tabs Allergies Allergy/AdvReac Type Severity Reaction Status Date / Time cephalexin (From Keflex) Allergy Verified 05/13/24 17:36 Cephalosporins Allergy Verified 05/13/24 17:36 [facility] Disclaimer: The information contained in this section may have been updated after the patient was seen, as this information can be updated by other users. Social History Smoking Status: Never smoker alcohol intake: never current occupational status: employed Travel in the last 8 weeks: None Have you lived/traveled outside [place] in past 30 days?: No Contact w/someone who lives/traveled outside [place] past 30 days?: No Exposure to someone with infectious disease in past 14 days?: No Do you have a fever (greater than 100.4 F or 38 C)?: Yes Have you tested positive for COVID-19: No Exposed to someone with COVID-19 in past 14 days?: No Do you have a sore throat?: No Do you have a cough?: No Do you have any weakness?: No Do you have any diarrhea?: No Are you experiencing any unusual bleeding?: No Do you have any muscle aches/pain?: Yes Do you have any abdominal pain?: No Are you experiencing loss of taste or smell?: No Other Medical History Have you received the Flu Vaccine for this season: No Have you received the Pneumonia Vaccine: No ROS Obtained: Yes All systems reviewed & no additional complaints except as documented Physical Exam General General appearance: alert and in no apparent distress Head Head exam: atraumatic and normocephalic Eye Eye exam: Present normal appearance, PERRL and EOMI ENT ENT exam: Present normal exam, normal oropharynx, mucous membranes moist and normal external ear exam Neck Neck exam: Present normal inspection, full ROM and trachea midline; Absent tenderness Chest Chest inspection: Present normal inspection and symmetric chest wall rise; Absent tenderness Respiratory Respiratory exam: Present normal lung sounds bilaterally; Absent respiratory distress, wheezes, stridor or accessory muscle use Cardiovascular Cardiovascular exam: Present normal rhythm and tachycardia (In the setting of fever) Abdominal Exam Abdominal exam: Present soft; Absent distention, tenderness or guarding Extremities Exam Extremities exam: Present normal inspection, full ROM and normal capillary refill; Absent tenderness or edema Back Exam Back exam: Present normal inspection and full ROM; Absent tenderness Neurological Exam Neurological exam: Present alert, oriented X3, CN II-XII intact and normal gait; Absent motor sensory deficit Psychiatric Psychiatric exam: Present normal affect and normal mood Skin Skin exam: Present warm and dry Medical Decision Making Medical Records Medical records reviewed: Yes I reviewed the patient's medical records. Screening: Per USPSTF and CDC recommendations, given the prevalence of disease in our region, it is our hospital?s policy to screen for HIV and viral Hepatitis for all patients aged 18 and over and those with ongoing risk factors. Walter Inquiry Pt receiving controlled substance: No Vital Signs: 05/13/24 17:13 05/13/24 19:54 Temperature 102 F H 98.4 F Temperature Source Oral Pulse Rate 89 Pulse Rate [Right] 116 H Respiratory Rate 20 20 Blood Pressure 145/89 H Blood Pressure [Right Arm] 134/83 Blood Pressure Mean [Right Arm] 100 Blood Pressure Source [Right Arm] Automatic Cuff Blood Pressure Position [Right Arm] Sitting 02 Sat by Pulse Oximetry 96 Oxygen Delivery Method Room Air Room Air Lab Data Lab results reviewed: Yes I reviewed the patient's lab results. Lab Results 05/13/24 17:33: SARS-CoV-2 (PCR) Not detected, Influenza A Untype (PCR) Detected A, Influenza Type B (PCR) Not detected 05/13/24 18:00: WBC 6.3, RBC 4.75, Hgb 14.1, Hct 41.7 L, MCV 87.8, MCH 29.7, MCHC 33.8, RDW 14.3, Plt Count 215, MPV 9.0, Neut % (Auto) 83.9 H, Lymph % (Auto) 5.6 L, Cuming % (Auto) 9.7 H, Eos % (Auto) 0.6, Baso % (Auto) 0.0 L, Neut # (Auto) 5.3, Lymph # (Auto) 0.4 L, Cuming # (Auto) 0.6, Eos # (Auto) 0.0, Baso # (Auto) 0.0, Sodium 139, Potassium 4.0, Chloride 106, Carbon Dioxide 23, Anion Gap 14.0, BUN 16, Creatinine 1.10, Estimated Creat Clear 128, Estimated GFR 72, Est GFR ( Amer) 88, Glucose 105 H, Calcium 8.8, Total Bilirubin 0.6, AST 63 H, ALT 75, Alkaline Phosphatase 88, Total Protein 7.9, Albumin 4.8, Globulin 3.1, Albumin/Globulin Ratio 1.5, TSH 5.44 H, Thyroxine (T4) 6.4 05/13/24 18:00 05/13/24 18:00 Orders (Tests/Meds): ED MEDICATIONS Discontinued Medications Generic Name Dose Route Start Last Admin Trade Name Freq PRN Reason Stop Dose Admin Acetaminophen 650 mg 05/13/24 17:23 05/13/24 17:31 Acetaminophen 325mg Tab PO 05/13/24 17:24 650 mg ONCE ONE Administration Lactated Ringer's 1,000 mls @ 999 mls/hr 05/13/24 17:30 05/13/24 18:09 Lactated Ringer's 1000 Ml Bag IV 05/13/24 18:30 999 mls/hr .Q1H1M ONE Administration Ibuprofen 600 mg 05/13/24 17:22 05/13/24 17:30 Ibuprofen 600 Mg Tablet PO 05/13/24 17:23 600 mg ONCE ONE Administration Ondansetron HCl 4 mg 05/13/24 17:30 05/13/24 18:09 Ondansetron 4mg/2ml Vial IV 05/13/24 17:31 4 mg ONCE ONE Administration ORDERS Category Date Time Status Complete Blood Count Auto Diff Stat Lab 05/13/24 18:00 Completed Comprehensive Metabolic Panel Stat Lab 05/13/24 18:00 Completed Rapid PCR Covid and Flu A/B Stat Lab 05/13/24 17:33 Completed T4 (Thyroxine) Stat Lab 05/13/24 18:00 Completed TSH [Thyroid Stimulating Hormone] Stat Lab 05/13/24 18:00 Completed Medical Decision Narrative: In summary, this patient is a 43-year-old male presenting to the Emergency Department for evaluation of fever, body aches, cough, nausea. Differential diagnoses considered include but are not limited to viral syndrome, pneumonia, gastroenteritis. He expresses concern that he has not been taking his thyroid medications and he also has not been up on his B12 infusions. I do not feel that this is likely contributing. ruling out the most morbid conditions drove assessment. It should be noted patient's history includes hypothyroidism, obesity which are not at goal therapy. This complicates all aspects of care by increasing patient's risk for morbidity. On exam, the patient is sitting upright in no acute distress. I feel patient likely has a viral syndrome given that his son at home is also sick and his constellation of symptoms fit viral syndrome. He is tachycardic in the setting of fever, but he is nontoxic-appearing with no increased work of breathing. Cardiopulmonary and abdominal exams are benign. Workup included CBC, CMP, TSH, T4, viral swab. Patient is given a bolus of IV fluids, oral Tylenol ibuprofen, IV Zofran for symptomatic improvement. Labs obtained are reassuring with no significant leukocytosis, anemia, or other concerns. Chemistry is reassuring with normal kidney function, reassuring liver enzymes. TSH is very mildly elevated, but T4 is within normal limits. He does have levothyroxine that he is not been taking at home. He did test positive for the flu, which I feel is the cause of his symptoms. I feel he is appropriate for discharge with instructions for supportive management and to continue taking his home medications. He was given strict return precautions and instructions for supportive management at home as well as prescriptions for Bromfed and Zofran. He was discharged after all questions were answered. Critical Care Critical Care Time Critical Care Time: No
[2024-05-13 18:20] LABS: Eosinophils % 0.6 % (0.1-12.0); Hematocrit 41.7 % (42.0-52.0); Hemoglobin 14.1 g/dL (14.1-18.0); Lymphocytes # 0.4 K/mm3 (0.7-4.5); Lymphocytes % 5.6 % (10-50); Mean Corpuscular HGB Conc 33.8 g/dL (31.8-35.4); Mean Corpuscular Hemoglobin 29.7 pg (27.0-31.2); Mean Corpuscular Volume 87.8 fl (80-94); Monocytes # 0.6 K/mm3 (0.1-1.0); Monocytes % 9.7 % (1.7-9.3); Neutrophils # 5.3 K/mm3 (1.8-7.8); Neutrophils % 83.9 % (37.0-80.0); Platelet Count 215 K/mm3 (142-424); Red Blood Count 4.75 M/mm3 (4.60-6.20); Red Cell Distribution Width 14.3 % (11.5-17.5); White Blood Count 6.3 K/mm3 (4.8-10.8)
[2024-05-13 18:34] LABS: Alanine Aminotransferase 75 U/L (12-78); Albumin Level 4.8 g/dl (3.5-5.0); Albumin/Globulin Ratio 1.5 (1.1-1.8); Alkaline Phosphatase 88 U/L (38-126); Aspartate Amino Transferase 63 U/L (17-59); Bilirubin,Total 0.6 mg/dl (0.2-1.3); Blood Urea Nitrogen 16 mg/dl (9-20); Calcium 8.8 mg/dl (8.4-10.2); Carbon Dioxide 23 mmol/L (22.0-30.0); Chloride 106 mmol/L (98-107); Creatinine Clearance Estimated 128 mL/min (50-200); Estimated Glomerular Filt Rate 72 ml/min (>60); GFR (African American) 88 ML/MIN (>60); Globulin 3.1 g/dL (1.3-3.2); Glucose 105 mg/dl (74-100); Sodium 139 mmol/L (136-145); Total Protein,Serum 7.9 g/dl (6.3-8.2)
[2024-05-13 18:52] LABS: T4 (Thyroxine) 6.4 ug/dl (5.53-11.0)
[2024-05-13 18:55] LABS: Influenza A, PCR Detected (NotDetected)
[2024-05-13 19:05] LABS: Thyroid Stimulating Hormone 5.44 uIU/mL (0.465-4.68)
[2024-05-13 19:54] VITALS: BP 145/89; PULSE 89; RESP 20; TEMP 36.9; O2SAT 97
== END 2024-05-13 20:00 | disposition home or self-care (01) ==
PROVIDERS: Emergency Provider Emergency Medicine; PCP Internal Medicine Adolescent Medicine
DX: J10.1 Influenza due to other identified influenza virus with other respiratory manifestations (principal); R50.9 Fever, unspecified; M79.10 Myalgia, unspecified site; R51.9 Headache, unspecified; R11.0 Nausea; Z20.828 Contact with and (suspected) exposure to other viral communicable diseases
CPT/HCPCS: 80053; 84436; 84443; 85025; 87636; 96361; 96374; 99283; J2405; J7120